=== PATIENT | female | born 1950 | race Caucasian/White ===

== ENCOUNTER → 2019-09-03 14:48 | Outpatient (CLI) | payer OTHER, SELFPAY ==
--- NOTE | ~2019-09-03 | MM_ITS ---
EXAMINATION: MM screening [place] BI w scar HISTORY: Screening mammogram TECHNIQUE: Craniocaudal and mediolateral oblique 3-D tomosynthesis images were obtained and synthetic 2-D images were generated. CAD analysis was submitted and interpreted. COMPARISON: 03/21/2018 BREAST PARENCHYMAL COMPOSITION: There are scattered areas of fibroglandular density. FINDINGS: There is no evidence of suspicious mass, calcification, or architectural distortion to sugg est malignancy in either breast. There has been no suspicious interval change. IMPRESSION: 1. No mammographic evidence of malignancy. 2. Recommend routine screening mammography in one year. BI-RADS Category 1: Negative Reviewed, dictated and finalized at location A. WELDER
== END ==
PROVIDERS: PCP Family Medicine; Visit Provider Nurse Practitioner Family
DX: Z12.31 Encounter for screening mammogram for malignant neoplasm of breast (principal)
CPT/HCPCS: 77063; 77067

== ENCOUNTER 2020-02-20 17:31 | Emergency (ER) | payer OTHER, SELFPAY ==
--- NOTE | ~2020-02-20 | XR_ITS ---
EXAMINATION: XR hip LT 2V w AP pelvis EXAM DATE: 02/20/2020 18:43 INDICATION: Left hip pain, fracture. Foreshortening. TECHNIQUE: Left hip frontal, crosstable lateral projections for interpretation. Frontal projection pe lvis. Comparison is made to prior examination from 12/11/2018. FINDINGS: There is total right hip arthroplasty. There is acute closed posttraumatic fracture through the left transcervical femoral neck, with superior displacement and impaction. Pelvic ring appears i ntact. IMPRESSION: Acute left transcervical femoral neck fracture. Reviewed, dictated and finalized at location A.
[2020-02-20 17:38] VITALS: BP 150/84; PULSE 88; RESP 19; TEMP 36.8; O2SAT 94
--- NOTE | 2020-02-20 18:08 | ED.GENADULT ---
HPI - General Adult General Chief complaint: Extremity Injury, Lower Stated complaint: fall,l hip pain Time Seen by Provider: 02/20/20 17:45 Source: patient Mode of arrival: EMS History of Present Illness HPI narrative: Patient is a 69 y/o female complaining of left hip pain starting about 1 hour ago after a fall. She states that she was in a garage and tripped over one leg of a table and fell. She denies hitting her her head or losing consciousness. She has no headache, neck pain, back pain, chest pain or abdominal pain. She describes her pain as 10/10 with no radiation. Movement worsens the pain. She was not able to ambulate after the fall. Daughter called EMS which brought her here. Related Data Home Medications Medication Instructions Recorded Confirmed Vitamin D3 06/24/19 amitriptyline 100 mg PO HS 06/24/19 06/24/19 citalopram 20 mg PO DAILY 06/24/19 06/24/19 famotidine 20 mg PO BID 06/24/19 06/24/19 gabapentin 100 mg PO HS 06/24/19 06/24/19 levothyroxine 100 mcg PO DAILY 06/24/19 06/24/19 senna 02/20/20 Allergies Allergy/AdvReac Type Severity Reaction Status Date / Time meperidine Allergy Unknown HAD Verified 02/20/20 17:46 DEMEROL IN ER ON 09/10/03 WITH NO REACTION Penicillins Allergy Unknown Hives / Verified 02/20/20 17:46 Red Face Review of Systems Constitutional: Constitutional: Denies chills, Denies fever(s), Denies headache(s) and Denies weakness Eyes: Eyes: Denies blurry vision ENT: Denies headache(s) and Denies neck pain Cardiovascular: Cardiovascular: Denies chest pain and Denies dyspnea Respiratory: Respiratory: Denies cough and Denies dyspnea Gastrointestinal: Gastrointestinal: Denies abdominal pain, Denies diarrhea, Denies nausea and Denies vomiting Genitourinary: Genitourinary: Denies hematuria and Denies dysuria Musculoskeletal: Musculoskeletal: Reports as per HPI, Denies back pain, Reports arthralgias (left hip pain) and Denies neck pain Neurologic: Denies headache(s) and Denies weakness PENDING SALE TO [facility] Past Medical History Medical History Anemia Anxiety Bronchitis Hip fracture, right HLD (hyperlipidemia) HTN (hypertension) Hypothyroid Kidney stones Multiple sclerosis MVP (mitral valve prolapse) Surgical History Surgical History H/O bilateral cataract extraction H/O section H/O dilation and curettage H/O: hysterectomy History of arthroplasty of right hip Social History Social History Smoking status: Never smoker Alcohol intake: never Gender identity (if verbalized by the patient): Female Exam Const: General: no acute distress and well developed Orientation/consciousness: oriented to person, oriented to place, oriented to time and patient oriented x3 HENMT: Head: normocephalic Ears: external ears normal General nose exam: Normal external nose present Eyes: General: appearance normal, both eyes and all related structures Conjunctivae: conjunctivae normal Neck: Neck: normal visual inspection and full ROM Chest: Chest palpation & inspection: normal inspection of the chest and no tenderness Resp: Effort & Inspection: normal respiratory effort Auscultation: clear to auscultation bilaterally Cardio: Rate: regular rate Rhythm: regular rhythm GI: GI Palp: No abdominal tenderness and Yes Soft to palpation Skin: General skin exam: normal color and turgor normal Neuro: General: oriented to person, oriented to place, oriented to time and patient oriented x3 Cognition (Neuro): normal cognition Extrem: General: normal to inspection, full ROM and no pedal edema Left lower extremity: hip/thigh Details: tenderness Psych: Appearance: grossly normal Mental Status: mental status grossly normal Affect: normal affect Course Reevaluation(s) Reevaluation #1: Informed patient abo
[2020-02-20 18:16] VITALS: BP 132/95; PULSE 87; RESP 19; O2SAT 94
--- NOTE | 2020-02-20 18:59 | ECG_ITS ---
Measurements Intervals [place] Rate: 80 P: 55 PA: 168 QRS: -7 QRSD: 125 T: 11 QT: 401 QTc: 465 Interpretive Statements SINUS RHYTHM POSSIBLE LEFT ATRIAL ENLARGEMENT RIGHT BUNDLE BRANCH BLOCK BASELINE ARTIFACT- I, II, III, AVR, AVL, AVF BORDERLINE ECG Electronically Signed On 02-20-2020 21:25:34 CDT by Alejo Chance D.O.
[2020-02-20] MEDS: MORPHINE SULFATE 4 MG/ML INJ IV PUSH ×2 (19:21→21:22)
[2020-02-20 19:22] VITALS: BP 143/83; PULSE 85; RESP 16; O2SAT 100
--- NOTE | 2020-02-20 19:40 | PC.NURSE ---
[facility] has accepted to take pt to [place] [facility] ETA [phone]
--- NOTE | 2020-02-20 19:47 | PC.NURSE ---
Called [facility] to transport to [facility] @ 0722
[2020-02-20 21:22] VITALS: BP 118/89; PULSE 90; RESP 21; O2SAT 100
--- NOTE | 2020-02-20 22:00 | PC.NURSE ---
[facility] ETA updated to [id number]
[2020-02-20 22:38] VITALS: BP 150/80; PULSE 90; RESP 20; O2SAT 100
[2020-02-20 23:19] VITALS: BP 143/91; PULSE 96; RESP 16; O2SAT 100
--- NOTE | 2020-02-20 23:40 | PC.NURSE ---
Spoke with pt and her daughter about delay in transfer. Pt is eddieley frustrated she has to wait for EMS transport. I explained to the patient reason of delay with EMS. Pt c/o pain, Dr. Riley notified, he stated he will order pain med.
[2020-02-21] MEDS: MORPHINE SULFATE 4 MG/ML INJ IV PUSH ×2 (00:03→05:08)
[2020-02-21 00:21] VITALS: BP 101/65; PULSE 97; RESP 19; O2SAT 100
[2020-02-21 01:09] VITALS: BP 154/85; PULSE 96; RESP 14; O2SAT 95
--- NOTE | 2020-02-21 02:09 | PC.NURSE ---
[facility] ETA updated to [id number]
[2020-02-21 02:11] VITALS: BP 142/82; PULSE 96; RESP 18; O2SAT 100
--- NOTE | 2020-02-21 04:08 | PC.NURSE ---
[facility] ETA updated to [phone]
--- NOTE | 2020-02-21 04:10 | PC.NURSE ---
[facility] ETA updated to [id number]
[2020-02-21 05:00] VITALS: BP 133/66; PULSE 92; RESP 13; O2SAT 95
== END 2020-02-21 05:10 | disposition short-term general hospital (02) ==
PROVIDERS: Emergency Provider Emergency Medicine; PCP Family Medicine
DX: S72.032A Displaced midcervical fracture of left femur, initial encounter for closed fracture (principal); F41.9 Anxiety disorder, unspecified; E78.5 Hyperlipidemia, unspecified; I10 Essential (primary) hypertension; E03.9 Hypothyroidism, unspecified; Z87.442 Personal history of urinary calculi; G35 Multiple sclerosis; I34.1 Nonrheumatic mitral (valve) prolapse; Z98.42 Cataract extraction status, left eye; I45.10 Unspecified right bundle-branch block; R94.31 Abnormal electrocardiogram [ECG] [EKG]; Z98.41 Cataract extraction status, right eye; W18.09XA Striking against other object with subsequent fall, initial encounter
CPT/HCPCS: 73502; 93005; 96374; 96375; 96376; 99285; J2270; J3010

== ENCOUNTER 2020-09-28 12:39 | Outpatient (NON) | payer MEDICARE, SELFPAY ==
[2020-09-28 13:15] LABS: Add Urine Microscopic? YES; Appearance Urine Clear (Clear); Bacteria Urine Trace /hpf; Bilirubin Urine Negative (Negative); Blood Urine Negative (Negative); Color Urine Yellow (Yellow); Glucose Urine UA Negative (Negative); Ketones Urine Negative (Negative); Leukocyte Esterase Ur 2+ LEU/UL (Negative); Mucus Urine Rare /lpf; Nitrate Urine Negative (Negative); Protein Urine Negative (Negative); Specific Grav Ur 1.013 (1.001-1.035); Squamous Epithelial Cell Urine Few /hpf (Few); Urobilinogen Urine Negative mg/dL (<2.0); WBC Urine 31-50 /hpf
== END 2020-09-28 12:40 ==
PROVIDERS: PCP Family Medicine; Visit Provider Nurse Practitioner Family
DX: R39.9 Unspecified symptoms and signs involving the genitourinary system (principal); N39.0 Urinary tract infection, site not specified
CPT/HCPCS: 81001; 87086; 87088

== ENCOUNTER 2020-09-29 12:19 | Emergency (ER) | payer MEDICARE, SELFPAY ==
[2020-09-29] VITALS (11 sets, daily range): BP systolic 140–163; BP diastolic 58–87; PULSE 67–72; RESP 12–21; TEMP 36.5; O2SAT 97–100
--- NOTE | ~2020-09-29 | XR_ITS ---
EXAMINATION: XR chest 1V portable DATE: 09/29/2020 13:15 INDICATION: Weakness. TECHNIQUE: A single frontal view of the chest was obtained. COMPARISON: Chest single view 01/23/2019 FINDINGS: There is mild atelectasis in the lower lung zones. No pleural effusion or pneumothorax. The heart size is normal. IMPRESSION: 1. Mild atelectasis in the lower lung zones. Reviewed, dictated and finalized at location A.
--- NOTE | ~2020-09-29 | CT_ITS ---
EXAMINATION: CT brain wo con EXAM DATE: 09/29/2020 13:12 INDICATION: Fall, weakness. Confusion. Symptoms 5 days. TECHNIQUE: Spiral CT of the head was performed without contrast. Axial, coronal and sagittal images were reviewed. The dose-length product (DLP) for this examination was 605.33 mGy-cm. The exposure w as tailored according to patient size, and iterative reconstruction (ASIR) was used as additional dos e reduction technique. Comparison is made to prior examination from 04/19/2018. FINDINGS: There is no acute intraparenchymal hemorrhage. No evidence of intraparenchymal brain mass lesion. No evidence of acute infarction. Please note that initial head CT has limited sensitivity f or small or acute infarctions. There is periventricular and subcortical hypodensity, nonspecific but probably related to small vessel ischemic disease. There is mild prominence of the sulci and ventr icles related to cerebral atrophy. There is intracranial carotid arteriosclerosis. There are no ex tra-axial collections. There is no mass effect or midline shift. The orbits are unremarkable. Soft tissue is unremarkable. The visualized sinuses and mastoid air cells are well aerated. IMPRESSION: 1. No acute intracranial findings. 2. Chronic age related findings. Reviewed, dictated and finalized at location A.
--- NOTE | 2020-09-29 12:40 | ECG_ITS ---
Measurements Intervals [place] Rate: 71 P: 43 VT: 160 QRS: -17 QRSD: 126 T: 11 QT: 415 QTc: 453 Interpretive Statements SINUS RHYTHM LEFT ATRIAL ENLARGEMENT RIGHT BUNDLE BRANCH BLOCK BASELINE ARTIFACT- I, II, III, AVR, AVL, AVF, V1-V2 ABNORMAL ECG Electronically Signed On 09-29-2020 15:25:09 CDT by Alejo Chance D.O.
--- NOTE | 2020-09-29 12:57 | ED.GENADULT ---
HPI - General Adult General Chief complaint: Neuro Symptoms/Deficit Stated complaint: payam symptoms, onset 1 week ago Time Seen by Provider: 09/29/20 12:26 Source: patient Mode of arrival: ambulatory Limitations: no limitations History of Present Illness HPI narrative: This is a 69 year old female with history multiple sclerosis, hypothyroid who presents for evaluation of an elevated blood pressure. During physical therapy today , patient was noted to have an elevated blood pressure so it was recommended that she get evaluated. She is unsure of her blood pressure reading. Patient and daughter states she has been having weakness since her left hip fracture 6 months ago. Her daughter states she called her primary care physician in July because patient appeared to be confused and weak. Her primary care physician arranged for her to receive PT/OT at home. Patient has continued to be weak even with physical therapy. Her daughter reports patient has frequent falls over the past 2 months. yesterday patient fell onto her buttocks trying to get up from bed. She states patient has been unable to walk over the past 2 days. She denies fever, chills, nausea, vomiting, diarrhea, chest pain or cough. Related Data Home Medications Medication Instructions Recorded Confirmed Vitamin D3 06/24/19 amitriptyline 100 mg PO HS 06/24/19 06/24/19 citalopram 40 mg PO DAILY 06/24/19 06/24/19 famotidine 20 mg PO BID 06/24/19 06/24/19 gabapentin 100 mg PO HS 06/24/19 06/24/19 levothyroxine 88 mcg PO DAILY 06/24/19 06/24/19 senna 02/20/20 cholecalciferol (vitamin D3) 125 mcg PO DAILY 09/29/20 [Vitamin D3] ergocalciferol (vitamin D2) 1,250 mcg PO WEEKLY 09/29/20 09/29/20 [Vitamin D2] Allergies Allergy/AdvReac Type Severity Reaction Status Date / Time meperidine Allergy Unknown HAD Verified 09/29/20 12:32 DEMEROL IN ER ON 09/10/03 WITH NO REACTION Penicillins Allergy Unknown Hives / Verified 09/29/20 12:32 Red Face Review of Systems Review of Systems: All systems reviewed & are unremarkable except as noted in HPI and below Constitutional: Constitutional: Denies chills and Denies fever(s) Eyes: Eyes: Denies change in vision Cardiovascular: Cardiovascular: Denies chest pain Respiratory: Respiratory: Denies cough and Denies dyspnea Gastrointestinal: Gastrointestinal: Denies abdominal pain, Denies diarrhea, Denies nausea and Denies vomiting Neurologic: Denies headache(s) and Reports weakness PMFSH Past Medical History Medical History (Updated 09/29/20 @ 15:22 by Morena Light MD) Anemia Anxiety Bronchitis Hip fracture, right HLD (hyperlipidemia) HTN (hypertension) Hypothyroid Kidney stones Multiple sclerosis MVP (mitral valve prolapse) Surgical History Surgical History H/O bilateral cataract extraction H/O section H/O dilation and curettage H/O: hysterectomy History of arthroplasty of right hip Social History Social History Smoking status: Never smoker Alcohol intake: never Gender identity (if verbalized by the patient): Female Exam Const: General: no acute distress and alert Orientation/consciousness: patient oriented x3 Eyes: Pupils: Equal, round and reactive pupils present EOM: EOMs intact bilaterally Chest: Chest palpation & inspection: normal inspection of the chest Resp: Effort & Inspection: normal respiratory effort and no retractions Auscultation: clear to auscultation bilaterally Cardio: Rate: regular rate Rhythm: regular rhythm Heart sounds: no murmurs GI: GI Palp: Yes Soft to palpation, No Tenderness to palpation present (GI) and No Guarding due to palpation present (GI) Auscultation: normal bowel sounds Skin: General skin exam: normal color Rashes: no rashes Neuro: General: patient oriented x3 and moves all extremiti
[2020-09-29 13:08] LABS: Basophils Percent Auto 0.6 % (0.2-1.2); Eosinophils Absolute Auto 0.3 K/mm3 (0-0.3); Eosinophils Percent Auto 3.6 % (0-4.4); Hematocrit 43.1 % (37.0-47.0); Hemoglobin 13.6 g/dL (12.0-15.0); Immature Granulocyte Absolute 0.04 K/mm3 (0.00-0.031); Immature Granulocyte Percent A 0.6 % (0-0.5); Lymphocytes Percent Auto 21.3 % (18.3-44.2); Mean Corpuscular HGB Conc 31.6 g/dl (32-36); Mean Corpuscular Hemoglobin 30.2 pg (26-34); Mean Corpuscular Volume 95.8 fl (80-100); Mean Platelet Volume 11.6 fl (7.4-10.4); Monocytes Absolute Auto 0.6 K/mm3 (0.1-0.6); Neutrophils Absolute Auto 4.6 K/mm3 (1.3-6.7); Neutrophils Percent Auto 65.9 % (45.5-73.1); Platelet Count Result 206 k/mm3 (150-375); Red Cell Distribution Width 14.1 % (11.5-14.5)
[2020-09-29 13:23] LABS: Alanine Aminotransferase 23 U/L (4-35); Albumin Level 4.1 g/dL (3.5-5.1); Alkaline Phosphatase 85 U/L (38-126); Anion Gap 8 mmol/L (8-16); Aspartate Amino Transferase 37 U/L (14-36); Bilirubin,Total 0.5 mg/dL (0.2-1.3); Blood Urea Nitrogen 22 mg/dL (7-17); Calcium 9.3 mg/dL (8.4-10.2); Carbon Dioxide 25 mmol/L (22-30); Chloride 105 mmol/L (98-107); Estimated CRCL calculation 34 ml/min; Estimated Glomerular Filt Rate 37; Glucose 79 mg/dL (65-105); Potassium 4.7 mmol/L (3.4-5.0); Sodium 138 mmol/L (137-145)
[2020-09-29] MEDS: SODIUM CHLORIDE 0.9% IV 1,000 ML 999 ML IV CONT (13:44)
[2020-09-29 13:53] LABS: INR 0.9; Prothrombin Time 12.7 Seconds (11.1-14.7)
[2020-09-29 13:54] LABS: Partial Thromboplastin Time 26.6 SECONDS (22.3-36.8)
[2020-09-29 14:05] LABS: Add Urine Microscopic? NO; Appearance Urine Clear (Clear); Bacteria Urine Trace /hpf; Bilirubin Urine Negative (Negative); Blood Urine Negative (Negative); Color Urine Yellow (Yellow); Glucose Urine UA Negative (Negative); Ketones Urine Negative (Negative); Leukocyte Esterase Ur Negative LEU/UL (Negative); Mucus Urine Rare /lpf; Nitrate Urine Negative (Negative); Protein Urine Negative (Negative); RBC Urine 0-2 /hpf (0-2); Specific Grav Ur 1.014 (1.001-1.035); Urobilinogen Urine Negative mg/dL (<2.0); WBC Urine 0-3 /hpf
== END 2020-09-29 15:30 | disposition home or self-care (01) ==
PROVIDERS: Emergency Provider General Practice; PCP Family Medicine
DX: R53.1 Weakness (principal); N28.9 Disorder of kidney and ureter, unspecified; G35 Multiple sclerosis; I10 Essential (primary) hypertension; E03.9 Hypothyroidism, unspecified; F41.9 Anxiety disorder, unspecified; E78.5 Hyperlipidemia, unspecified; Z87.442 Personal history of urinary calculi; I34.1 Nonrheumatic mitral (valve) prolapse; Z98.42 Cataract extraction status, left eye; Z98.41 Cataract extraction status, right eye; Z96.641 Presence of right artificial hip joint; R91.8 Other nonspecific abnormal finding of lung field; I45.10 Unspecified right bundle-branch block; R94.31 Abnormal electrocardiogram [ECG] [EKG]
CPT/HCPCS: 36415; 51701; 70450; 71045; 80053; 81003; 85025; 85610; 85730; 93005; 96360; 96361; 99284; J7030

== ENCOUNTER 2020-12-05 21:12 | Emergency (ER) | payer MEDICARE, SELFPAY ==
--- NOTE | ~2020-12-05 | CT_ITS ---
EXAMINATION: CT brain wo con DATE: 12/05/2020 21:45 INDICATION: Head injury post fall TECHNIQUE: Computed tomography (CT) of the head was performed without intravenous contrast. Sagittal and coronal reconstructions were performed. The mA was adjusted according to patient size. Iterative reconstruction technique was employed. The dose-length product was 605.33 mGy-cm. COMPARISON: head CT dated 09/29/2020 FINDINGS: No fracture. Small subdural hematoma along the right side of the anterior falx which measures up to 3 mm in maximal thickness. No acute acute infarction or abnormal extra axial fluid collection. There i s mild scattered white matter hypoattenuation consistent with chronic small vessel ischemic disease. Ventricles are normal and symmetric. No mass/mass effect. Mild mucosal thickening in the right maxil darion sinus. The orbits and mastoid air cells are normal. IMPRESSION: 1. Small subdural hematoma along the anterior falx. Dr. Rey Saenz discussed these findings with Dr. Richmond at 9:35 AM on 12/05/2020. Reviewed, dictated and finalized at location A. IMPRESSION: 1. Small subdural hematoma along the anterior falx. Dr. Rey Saenz discusse d these findings with Dr. Richmond at 9:35 AM on 12/05/2020.
--- NOTE | ~2020-12-05 | XR_ITS ---
EXAMINATION: XR tibia fibula LT 2V DATE: 12/05/2020 21:55 INDICATION: Left lower leg pain post fall TECHNIQUE: Anteroposterior and lateral views of the left tibia and fibula were obtained. COMPARISON: None. FINDINGS: Alignment is normal. No fracture. Small Achilles calcaneal spur. Joint spaces are normal. No left kn ee joint effusion. Soft tissues are unremarkable. IMPRESSION: 1. No acute osseous abnormality. Reviewed, dictated and finalized at location A.
--- NOTE | ~2020-12-05 | CT_ITS ---
EXAMINATION: CT cervical spine wo con DATE: 12/05/2020 21:46 INDICATION: Fall with head injury TECHNIQUE: Computed tomography (CT) of the cervical spine was performed without intravenous contrast. Automated exposure control and iterative reconstruction technique were employed. The dose-length pro duct was 318.91 mGy-cm. COMPARISON: Cervical spine MRI dated 04/23/2018 FINDINGS: Alignment is normal. Vertebral body heights are normal. No fracture. Mild disc height loss at C4-C5 a nd C5-C6. There are disc bulges with mild central canal stenosis at C3-C4 through C5-C6. Multilevel m ild uncovertebral and mild severe cervical and upper thoracic facet osteoarthritis. This contributes to scattered mild neural foraminal stenosis at a few levels in the cervical and upper thoracic spine. Cervical soft tissues are unremarkable. Visualized airway and apices of lungs are clear. IMPRESSION: 1. Mild cervical spondylosis. No acute osseous abnormality. Reviewed, dictated and finalized at location A.
--- NOTE | ~2020-12-05 | XR_ITS ---
EXAMINATION: XR hip LT 2V w AP pelvis DATE: 12/05/2020 21:55 INDICATION: Left hip pain post fall TECHNIQUE: Anteroposterior view of the pelvis and anteroposterior and frog-leg lateral views of the l eft hip were obtained. COMPARISON: 02/20/2020 FINDINGS: Right total hip arthroplasty with subtrochanteric cerclage wire and bipolar type left hip hemiarthrop lasty, both in near-anatomic alignment . No fracture. No periprosthetic lucency to suggest loosening. Bilateral sacroiliac joint spaces are relatively preserved. Tiny phleboliths in the pelvis. IMPRESSION: 1. No acute osseous abnormality. Reviewed, dictated and finalized at location A.
[2020-12-05 21:19] VITALS: BP 128/79; PULSE 74; RESP 16; TEMP 36.7; O2SAT 100
[2020-12-05 22:46] VITALS: BP 144/80; PULSE 77; RESP 16; O2SAT 100
--- NOTE | 2020-12-05 22:46 | ED.FALL ---
HPI - Fall General Chief Complaint: Fall Stated Complaint: fall, hip and neck pain Time Seen by Provider: 12/05/20 21:19 History of Present Illness HPI Narrative: Patient is a 70-year-old female who presents ER after a slip and fall. Her dog got loose outside and she was going around side of the house where the ground starts to slip downwards. She slipped and her legs went out in front of her and she fell backwards striking her head. Denies losing consciousness. Due to immobility issues patient was unable to get herself up from the ground. She reports pain to her left hip as well as her left carlton. Denies change in vision or hearing. She has pain in her head over where she struck her head but no global headache. She is not on any blood thinners but does take a baby aspirin. Related Data Home Medications Medication Instructions Recorded Confirmed Vitamin D3 06/24/19 amitriptyline 100 mg PO HS 06/24/19 06/24/19 citalopram 40 mg PO DAILY 06/24/19 06/24/19 famotidine 20 mg PO BID 06/24/19 06/24/19 gabapentin 100 mg PO HS 06/24/19 06/24/19 levothyroxine 88 mcg PO DAILY 06/24/19 06/24/19 senna 02/20/20 cholecalciferol (vitamin D3) 125 mcg PO DAILY 09/29/20 [Vitamin D3] ergocalciferol (vitamin D2) 1,250 mcg PO WEEKLY 09/29/20 09/29/20 [Vitamin D2] Allergies Allergy/AdvReac Type Severity Reaction Status Date / Time meperidine Allergy Unknown HAD Verified 09/29/20 12:32 DEMEROL IN ER ON 09/10/03 WITH NO REACTION Penicillins Allergy Unknown Hives / Verified 09/29/20 12:32 Red Face Review of Systems Review of Systems: All systems reviewed & are unremarkable except as noted in HPI and below Eyes: Eyes: Denies change in vision and Denies photophobia Cardiovascular: Cardiovascular: Denies chest pain and Denies radiating jaw, neck or arm pain Gastrointestinal: Gastrointestinal: Denies nausea and Denies vomiting Musculoskeletal: Musculoskeletal: Denies back pain, Reports arthralgias, Denies joint swelling and Denies muscle cramps PMFSH Past Medical History Medical History (Updated 12/05/20 @ 22:58 by Paxton Richmond MD) Anemia Anxiety Bronchitis Hip fracture, right HLD (hyperlipidemia) HTN (hypertension) Hypothyroid Kidney stones Multiple sclerosis MVP (mitral valve prolapse) Surgical History Surgical History H/O bilateral cataract extraction H/O section H/O dilation and curettage H/O: hysterectomy History of arthroplasty of right hip Social History Social History Smoking status: Never smoker Alcohol intake: never Gender identity (if verbalized by the patient): Female Exam Narrative: Exam Narrative: GENERAL: Well-appearing, well-nourished, and in no acute distress. HEAD: Normocephalic, atraumatic. EYES: PERRL and EOMI. ENT: Mucous membranes moist. NECK: C-Spine immobilized w/o midline tenderness. CHEST: Clear to auscultation. No respiratory distress. HEART: Regular rate and rhythm. Normal peripheral pulses. ABDOMEN: Soft, nontender, nondistended. BACK: No midline tenderness of the thoracic/lumbar spine. No abrasions/burising/paraspinal pain. EXTREMITIES: Normal range of motion. 1+ edema. SKIN: Warm, dry, no rash. NEURO: Clear speech, normal strength in BLE/BUE, normal sensation in extremities. Alert and oriented x3. Course Reevaluation(s) Reevaluation #1: Accepted to [facility] ER by Dr. Lechuga. Date: 12/05/20 Time: 22:56 Vital Signs Vital signs: Vital Signs Temperature 98.1 F 12/05/20 21:19 Pulse Rate 74 12/05/20 21:19 Respiratory Rate 16 12/05/20 21:19 Blood Pressure 128/79 12/05/20 21:19 Pulse Oximetry 100 12/05/20 21:19 Temperature 98.1 F 12/05/20 21:19 Pulse Rate 77 12/05/20 22:46 Respiratory Rate 16 12/05/20 22:46 Blood Pressure 144/80 H 12/05/20 22:46 Pulse Oximetry 100 12/05/20 22:46 MDM
--- NOTE | 2020-12-05 23:38 | PC.NURSE ---
called [facility] for transport. ETA 15 minutes.
== END 2020-12-06 00:01 | disposition short-term general hospital (02) ==
PROVIDERS: Emergency Provider Emergency Medicine; PCP Family Medicine
DX: S06.5X0A Traumatic subdural hemorrhage without loss of consciousness, initial encounter (principal); G35 Multiple sclerosis; F41.9 Anxiety disorder, unspecified; E78.5 Hyperlipidemia, unspecified; I10 Essential (primary) hypertension; E03.9 Hypothyroidism, unspecified; Z86.2 Personal history of diseases of the blood and blood-forming organs and certain disorders involving the immune mechanism; Z87.442 Personal history of urinary calculi; W01.0XXA Fall on same level from slipping, tripping and stumbling without subsequent striking against object, initial encounter; I34.1 Nonrheumatic mitral (valve) prolapse; Z98.42 Cataract extraction status, left eye; Z98.41 Cataract extraction status, right eye; Z96.641 Presence of right artificial hip joint
CPT/HCPCS: 70450; 72125; 73502; 73590; 99284; 99285

== ENCOUNTER → 2021-02-19 13:50 | Outpatient (CLI) | payer MEDICARE, SELFPAY ==
--- NOTE | ~2021-02-19 | MM_ITS ---
EXAMINATION: MM screening [facility] BI w scar HISTORY: Screening TECHNIQUE: Craniocaudal and mediolateral oblique 3-D tomosynthesis images were obtained and synthetic 2-D images were generated. CAD analysis was submitted and interpreted. COMPARISON: Comparison to multiple prior studies sequentially, with oldest reviewed study dated 11/2017. BREAST PARENCHYMAL COMPOSITION: There are scattered areas of fibroglandular density. FINDINGS: There is no evidence of suspicious mass, calcification, or architectural distortion to sugg est malignancy in either breast. There has been no suspicious interval change. IMPRESSION: 1. No mammographic evidence of malignancy. 2. Recommend routine screening mammography in one year. BI-RADS Category 1: Negative Reviewed, dictated and finalized at location A.
== END ==
PROVIDERS: PCP Nurse Practitioner Family; Visit Provider Nurse Practitioner Family
DX: Z12.31 Encounter for screening mammogram for malignant neoplasm of breast (principal)
CPT/HCPCS: 77063; 77067

== ENCOUNTER → 2021-05-13 12:31 | Outpatient (CLI) | payer MEDICARE, SELFPAY ==
--- NOTE | ~2021-05-13 | XR_ITS ---
EXAMINATION: XR hip LT min 2V DATE: 05/13/2021 12:51 INDICATION: Left hip pain. TECHNIQUE: 2 views of left hip were obtained. COMPARISON: Left hip radiographs 12/05/2020 FINDINGS: There is a bipolar left hip hemiarthroplasty in near-anatomic alignment. No fracture. No pe riprosthetic lucency to suggest loosening or infection. Left hip joint space is normal. IMPRESSION: 1. Bipolar left hip hemiarthroplasty in near-anatomic alignment. Reviewed, dictated and finalized at location A.
== END ==
PROVIDERS: PCP Nurse Practitioner Family; Visit Provider Nurse Practitioner Family
DX: M25.559 Pain in unspecified hip (principal)
CPT/HCPCS: 73502

== ENCOUNTER 2021-11-08 18:38 | Emergency (ER) | payer MEDICARE, SELFPAY ==
--- NOTE | ~2021-11-08 | XR_ITS ---
EXAMINATION: XR foot LT min 3V DATE: 11/08/2021 21:01 INDICATION: Left foot swelling and redness TECHNIQUE: Dorsoplantar, lateral, and 2 oblique views of the left foot were obtained. COMPARISON: None. FINDINGS: There is dorsal soft tissue swelling of the foot overlying the metatarsals. No fracture is identified. Bone alignment is normal. There is mild osteoarthritis of multiple interphalangeal joints . IMPRESSION: 1. Dorsal soft tissue swelling of the foot overlying the metatarsals without acute osseous abnormalit y. Reviewed, dictated and finalized at location F. IMPRESSION: 1. Dorsal soft tissue swelling of the foot overlying the metatarsals without ac era osseous abnormality.
--- NOTE | 2021-11-08 19:21 | PC.NURSE ---
Addendum entered by Layne Castellano RN 11/08/21 19:21: Pt had no answer for triage Original Note: This nurse called the pt x1 for triage
[2021-11-08 19:53] VITALS: BP 148/88; PULSE 78; RESP 16; TEMP 36.7; O2SAT 99
--- NOTE | 2021-11-08 20:43 | ED.LOWEXIN ---
HPI - Extremity Injury (Lower) General Chief Complaint: Extremity Injury, Lower Stated Complaint: toe pain Time Seen by Provider: 11/08/21 20:37 Source: patient Mode of arrival: ambulatory Limitations: no limitations History of Present Illness HPI Narrative: Patient is a 72-year-old female complaining of left foot pain, swelling started 3 days ago. Patient states that she might of stubbed her toe but does not remember. Patient denies any calf pain or swelling. Patient denies any fever or chills. Related Data Home Medications Medication Instructions Recorded Confirmed Vitamin D3 06/24/19 amitriptyline 100 mg PO HS 06/24/19 06/24/19 citalopram 40 mg PO DAILY 06/24/19 06/24/19 famotidine 20 mg PO BID 06/24/19 06/24/19 gabapentin 100 mg PO HS 06/24/19 06/24/19 levothyroxine 88 mcg PO DAILY 06/24/19 06/24/19 senna 02/20/20 cholecalciferol (vitamin D3) 125 mcg PO DAILY 09/29/20 [Vitamin D3] ergocalciferol (vitamin D2) 1,250 mcg PO WEEKLY 09/29/20 09/29/20 [Vitamin D2] Allergies Allergy/AdvReac Type Severity Reaction Status Date / Time meperidine Allergy Unknown HAD Verified 11/08/21 20:38 DEMEROL IN ER ON 09/10/03 WITH NO REACTION Penicillins Allergy Unknown Hives / Verified 11/08/21 20:38 Red Face Review of Systems Review of Systems: Per HPI All systems reviewed & are unremarkable except as noted in HPI and below PMFSH Past Medical History Medical History (Updated 11/08/21 @ 21:23 by Guille Duong MD) Anemia Anxiety Bronchitis Hip fracture, right HLD (hyperlipidemia) HTN (hypertension) Hypothyroid Kidney stones Multiple sclerosis MVP (mitral valve prolapse) Surgical History Surgical History H/O bilateral cataract extraction H/O section H/O dilation and curettage H/O: hysterectomy History of arthroplasty of right hip Social History Social History Smoking status: Never smoker Alcohol intake: never Gender identity (if verbalized by the patient): Female Exam Const: General: no acute distress and alert Orientation/consciousness: patient oriented x3 HENMT: Head: normal to inspection Eyes: Conjunctivae: conjunctivae normal Neck: Neck: normal visual inspection Resp: Effort & Inspection: normal respiratory effort Neuro: General: patient oriented x3 and moves all extremities Extrem: Other: Slightly erythematous, swollen left foot. Full range of motion. Neurovascular is intact. Course Vital Signs Vital signs: Vital Signs Temperature 36.7 C 11/08/21 19:53 Pulse Rate 78 11/08/21 19:53 Respiratory Rate 16 11/08/21 19:53 Blood Pressure 148/88 H 11/08/21 19:53 Pulse Oximetry 99 11/08/21 19:53 Temperature 36.7 C 11/08/21 19:53 Pulse Rate 78 11/08/21 19:53 Respiratory Rate 16 11/08/21 19:53 Blood Pressure 148/88 H 11/08/21 19:53 Pulse Oximetry 99 11/08/21 19:53 Discharge Plan Discharge Clinical Impression: Cellulitis of foot Patient Disposition: Home, Self-Care Condition: Stable Instructions: Antibiotic Form, Cellulitis (ED) Prescriptions: New doxycycline monohydrate 100 mg capsule 100 mg PO BID 7 Days Qty: 14 RF: 0 No Action amitriptyline 50 mg Tablet 100 mg PO HS RF: 0 levothyroxine 100 mcg Tablet 88 mcg PO DAILY RF: 0 citalopram 20 mg Tablet 40 mg PO DAILY RF: 0 famotidine 20 mg Tablet 20 mg PO BID RF: 0 gabapentin 100 mg Capsule 100 mg PO HS RF: 0 Vitamin D3 RF: 0 senna RF: 0 ergocalciferol (vitamin D2) [Vitamin D2] 1,250 mcg (50,000 unit) Capsule 1,250 mcg PO WEEKLY RF: 0 cholecalciferol (vitamin D3) [Vitamin D3] 125 mcg (5,000 unit) Tablet 125 mcg PO DAILY RF: 0 Follow-up/Referrals: Tesfaye,YESI Hammonds-JAYNE [Primary Care Provider] - 11/09/21 Time of Disposition: 21:24
[2021-11-08] MEDS: DOXYCYCLINE HYCLATE 100 MG TABLET (21:41)
--- NOTE | 2021-11-08 21:42 | PC.NURSE ---
vorb for doxycycline 100 [address]1 [address] Dr Duong
== END 2021-11-08 21:48 | disposition home or self-care (01) ==
PROVIDERS: Emergency Provider Emergency Medicine; PCP Nurse Practitioner Family
DX: L03.116 Cellulitis of left lower limb (principal); E78.5 Hyperlipidemia, unspecified; I10 Essential (primary) hypertension; E03.9 Hypothyroidism, unspecified; G35 Multiple sclerosis; I34.1 Nonrheumatic mitral (valve) prolapse; Z87.442 Personal history of urinary calculi; F41.9 Anxiety disorder, unspecified; Z98.42 Cataract extraction status, left eye; Z98.41 Cataract extraction status, right eye; Z96.641 Presence of right artificial hip joint
CPT/HCPCS: 73630; 99283; A9270

== ENCOUNTER 2022-02-21 18:09 | Emergency (ER) | payer MEDICARE, SELFPAY ==
--- NOTE | ~2022-02-21 | XR_ITS ---
EXAM: XR ribs BI 3V w CXR 2V DATE: 02/21/2022 19:03 HISTORY: fallen 2 times in 8 days . COMPARISON: None available. FINDINGS: Decreased mineralization. Senescent changes in the lungs. Unremarkable cardiomediastinal s ilhouette. No fracture or dislocation. No lytic or blastic lesion. Joint spaces are maintained. No er osion or periosteal change. Soft tissues within normal limits. IMPRESSION: No acute osseous finding in the bilateral ribs or chest. Reviewed, dictated and finalized at location K.
--- NOTE | 2022-02-21 18:24 | ED.FEMALEGU ---
HPI - Female Genitourinary General Chief complaint: Urogenital-Female Stated complaint: kindey infection,rib pain Time Seen by Provider: 02/21/22 18:35 Source: patient and RN notes reviewed Mode of arrival: ambulatory Limitations: no limitations History of Present Illness HPI Narrative: 71 y/o female with history of MS presented for c/o bilateral lower back pain and right rib pain. Pt has had 2 falls in 8 days. States she tripped while walking, landed on carpet floor on the right side of her body and fell in the bathroom. Pain is zero at rest, worse with movement. Denies hitting her head or loss of consciousness. Denies numbness, tingling or increased weakness of the lower extremities, denies loss of bowel/bladder function or saddle paresthesia. Using cane. History of brain aneurysm since a fall 03/2021. Also reports urine is 'red' and she is more confused for the last couple of weeks. Cannot recall LBM. Daughter states she had a recent URI, testing negative for covid last week. Reports she drinks minimal water, mostly pepsi. Denies cough, shortness of breath, abdominal pain, n/v/d, fever, chills. Related Data Home Medications Medication Instructions Recorded Confirmed Vitamin D3 25 mcg PO DAILY 06/24/19 amitriptyline 50 mg tablet 100 mg PO HS 06/24/19 02/21/22 famotidine 20 mg tablet 20 mg PO BID 06/24/19 02/21/22 levothyroxine 100 mcg tablet 88 mcg PO DAILY 06/24/19 02/21/22 senna 100 mg PO DAILY 02/20/20 ergocalciferol (vitamin D2) 1,250 1,250 mcg PO WEEKLY 09/29/20 02/21/22 mcg (50,000 unit) capsule (Vitamin D2) alendronate 70 mg-cholecalciferol 1 tablet PO DAILY 02/21/22 02/21/22 (vitamin D3) 2,800 unit tablet escitalopram oxalate 5 mg tablet 5 mg PO DAILY 02/21/22 02/21/22 paroxetine HCl 10 mg tablet 10 mg PO DAILY 02/21/22 02/21/22 Allergies Allergy/AdvReac Type Severity Reaction Status Date / Time meperidine Allergy Unknown HAD Verified 02/21/22 18:25 DEMEROL IN ER ON 09/10/03 WITH NO REACTION Penicillins Allergy Unknown Hives / Verified 02/21/22 18:25 Red Face Review of Systems Review of Systems: CONSTITUTIONAL: Denies body aches, fever, chills, or sweats. CARDIOVASCULAR: Denies chest pain, palpitations, or edema. RESPIRATORY: Denies cough or dyspnea. GASTROINTESTINAL: Denies abdominal pain, nausea, vomiting, or diarrhea. GENITOURINARY: Denies dysuria, frequency, urgency, hematuria, flank pain SKIN: Denies rash, itching, or wounds. MUSCULOSKELETAL: Denies back pain or myalgia. [facility] Past Medical History Medical History (Updated 02/21/22 @ 19:23 by Radha Olsen, WALTER) Anemia Anxiety Bronchitis Hip fracture, right HLD (hyperlipidemia) HTN (hypertension) Hypothyroid Kidney stones Multiple sclerosis MVP (mitral valve prolapse) Surgical History Surgical History H/O bilateral cataract extraction H/O section H/O dilation and curettage H/O: hysterectomy History of arthroplasty of right hip Social History Social History Smoking status: Never smoker Alcohol intake: never Gender identity (if verbalized by the patient): Female Comments At time of signature, I have reviewed and agree with nursing past medical, surgical, social and family history unless otherwise noted. Please see nursing chart for further information. There is no relevant family history pertinent to the presenting complaint Exam Narrative: GENERAL: Well-appearing no acute distress. EYES: EOMI. PERRLA ENT: Mucous membranes pink and moist. NECK: Normal AROM. No vertebral tenderness. CHEST: No respiratory distress. Clear to auscultation. HEART: Regular rate and rhythm. ABDOMEN: Soft, nontender, nondistended, normal active bowel sounds. No CVA tenderness MUSCULOSKELETAL: Right lower rib tenderness with palpation, no bruising; no vertebral point tenderness.
[2022-02-21 18:27] VITALS: BP 145/87; PULSE 77; RESP 14; TEMP 36.3; O2SAT 100
[2022-02-21 18:32] VITALS: BP 145/87; PULSE 77; RESP 14; TEMP 36.3; O2SAT 100
== END 2022-02-21 19:45 | disposition home or self-care (01) ==
PROVIDERS: Emergency Provider Nurse Practitioner Family; PCP Nurse Practitioner Family
DX: R31.29 Other microscopic hematuria (principal); S20.211A Contusion of right front wall of thorax, initial encounter; W01.0XXA Fall on same level from slipping, tripping and stumbling without subsequent striking against object, initial encounter; E78.5 Hyperlipidemia, unspecified; I10 Essential (primary) hypertension; E03.9 Hypothyroidism, unspecified; G35 Multiple sclerosis; I34.1 Nonrheumatic mitral (valve) prolapse; Z98.42 Cataract extraction status, left eye; Z98.41 Cataract extraction status, right eye; F41.9 Anxiety disorder, unspecified
CPT/HCPCS: 71046; 71110; 81003; 87086; 99213; G0463

== ENCOUNTER 2022-04-29 12:36 | Emergency (ER) | payer MEDICARE, SELFPAY ==
--- NOTE | ~2022-04-29 | CT_ITS ---
EXAMINATION: CT brain wo con DATE: 04/29/2022 13:36 INDICATION: Head injury. TECHNIQUE: Computed tomography (CT) of the head was performed without intravenous contrast. The mA wa s adjusted according to patient size. Iterative reconstruction technique was employed. The dose-lengt h product was 605.33 mGy-cm. COMPARISON: Head CT 12/05/20 FINDINGS: There are scattered areas of low attenuation in the cerebral white matter, which is within normal limits for the patient's age. There is no intracranial hemorrhage, acute infarction, or abnorm al intracranial mass lesion. The ventricles are normal in size. The orbits are normal. There is left anterolateral scalp soft tissue swelling. Vertebral body heights are normal. The mastoid air cells ar e normal. IMPRESSION: 1. Normal aging brain. Reviewed, dictated and finalized at location A. IMPRESSION: 1. Normal aging brain.
[2022-04-29 12:40] VITALS: BP 153/76; PULSE 78; RESP 20; TEMP 36.7; O2SAT 98
--- NOTE | 2022-04-29 13:11 | ED.FALL ---
HPI - Fall General Chief Complaint: Head Injury Stated Complaint: FELL HIT HEAD Time Seen by Provider: 04/29/22 12:38 Source: patient and RN notes reviewed Mode of arrival: ambulatory Limitations: no limitations History of Present Illness HPI Narrative: patient states that she was walking through construction at her home. She lives in a trailer at this point mother billing her new home. Said she tripped over some of the materials there and hit the stove with her left side of her forehead. She has a history of a traumatic hemorrhage in the past also multiple sclerosis. She wanted to be checked out to be sure there is nothing worse going on. complaint: fall Onset (ago): hour(s) (1.5) Fall from: standing Fall witnessed: no Place fall occurred: home Loss of consciousness: none Prolonged down time: no Symptoms prior to fall: none Context: tripped/slipped Location of injury: head Severity: mild Quality: dull and aching Associated symptoms (after fall): denies Related Data Home Medications Medication Instructions Recorded Confirmed Vitamin D3 25 mcg PO DAILY 06/24/19 04/29/22 amitriptyline 50 mg tablet 100 mg PO HS 06/24/19 04/29/22 famotidine 20 mg tablet 20 mg PO BID 06/24/19 04/29/22 levothyroxine 100 mcg tablet 88 mcg PO DAILY 06/24/19 04/29/22 senna 100 mg PO DAILY 02/20/20 04/29/22 ergocalciferol (vitamin D2) 1,250 1,250 mcg PO WEEKLY 09/29/20 04/29/22 mcg (50,000 unit) capsule (Vitamin D2) alendronate 70 mg-cholecalciferol 1 tablet PO DAILY 02/21/22 04/29/22 (vitamin D3) 2,800 unit tablet escitalopram oxalate 5 mg tablet 5 mg PO DAILY 02/21/22 04/29/22 paroxetine HCl 10 mg tablet 10 mg PO DAILY 02/21/22 04/29/22 Allergies Allergy/AdvReac Type Severity Reaction Status Date / Time meperidine Allergy Unknown HAD Verified 02/21/22 18:25 DEMEROL IN ER ON 09/10/03 WITH NO REACTION Penicillins Allergy Unknown Hives / Verified 02/21/22 18:25 Red Face PMFSH Past Medical History Medical History (Updated 10/14/22 @ 13:49 by Antonino Nino MD) Anemia Anxiety Bronchitis Hip fracture, right HLD (hyperlipidemia) HTN (hypertension) Hypothyroid Kidney stones Multiple sclerosis MVP (mitral valve prolapse) Surgical History Surgical History H/O bilateral cataract extraction H/O section H/O dilation and curettage H/O: hysterectomy History of arthroplasty of right hip Social History Social History Smoking status: Never smoker Alcohol intake: never Gender identity (if verbalized by the patient): Female Exam Const: General: healthy appearing, no acute distress and alert Nutritional Appearance: well nourished and thin Orientation/consciousness: patient oriented x3 Limitations: no limitations HENMT: Head: contusion left frontal (forehead) and hematoma left frontal (forehead) Ears: external ears normal and TM's normal bilaterally Face/Nose/Sinus: Normal external nose present Face and sinus: normal facial exam Mouth: Yes moist mucous membranes Eyes: Conjunctivae: conjunctivae normal Pupils: Equal, round and reactive pupils present EOM: EOMs intact bilaterally Neck: Neck: normal visual inspection Resp: Effort & Inspection: normal respiratory effort Auscultation: clear to auscultation bilaterally Cardio: Rate: regular rate Rhythm: regular rhythm GI: GI Palp: Yes Soft to palpation and No Tenderness to palpation present (GI) Auscultation: normal bowel sounds Back/Spine/Pelvis: Cervical Spine: cervical ROM normal Thoracic/Lumbar Spine: thoraco-lumbar ROM normal Skin: General skin exam: normal color Neuro: General: patient oriented x3, moves all extremities, no focal motor deficits and CN's II-XI intact bilaterally Speech: normal speech Gait exam (Neuro): Normal gait present Extrem: General: normal to inspection and no clubbing, cya
--- NOTE | 2022-04-29 13:56 | PC.NURSE ---
pt daughter states pt has been hallucinating. concerned with medications paroxetine. pt has appt with family doctor this week.
[2022-04-29 13:58] VITALS: BP 148/77; PULSE 71; RESP 20; TEMP 36.6; O2SAT 97
== END 2022-04-29 14:05 | disposition home or self-care (01) ==
PROVIDERS: Emergency Provider Emergency Medicine; PCP Nurse Practitioner Family
DX: S00.03XA Contusion of scalp, initial encounter (principal); W22.8XXA Striking against or struck by other objects, initial encounter
CPT/HCPCS: 70450; 99284

== ENCOUNTER 2022-09-19 13:48 | Emergency (ER) | payer MEDICARE, SELFPAY ==
[2022-09-19 13:48] VITALS: BP 149/98; PULSE 88; RESP 16; TEMP 37; O2SAT 96
[2022-09-19 13:50] VITALS: BP 149/98; PULSE 87; RESP 16; TEMP 37; O2SAT 97
--- NOTE | 2022-09-19 14:08 | ED.GENADULT ---
HPI - General Adult General Chief complaint: Nausea/Vomiting/Diarrhea Stated complaint: vomiting Time Seen by Provider: 09/19/22 13:51 History of Present Illness HPI narrative: Corrina was brought to the ED by her daughter with concerns of nausea and vomiting. She has had some nausea, dysphagia and possibly some weight loss for a couple months. However, over the last few days she has had worsening nausea and 3 episodes of non-bilious vomiting. No diarrhea, fevers or chills. Related Data Home Medications Medication Instructions Recorded Confirmed Vitamin D3 25 mcg PO DAILY 06/24/19 04/29/22 amitriptyline 50 mg tablet 100 mg PO HS 06/24/19 09/19/22 famotidine 20 mg tablet 20 mg PO BID 06/24/19 09/19/22 levothyroxine 100 mcg tablet 88 mcg PO DAILY 06/24/19 09/19/22 senna 100 mg PO DAILY 02/20/20 04/29/22 ergocalciferol (vitamin D2) 1,250 1,250 mcg PO WEEKLY 09/29/20 09/19/22 mcg (50,000 unit) capsule (Vitamin D2) alendronate 70 mg-cholecalciferol 1 tablet PO DAILY 02/21/22 09/19/22 (vitamin D3) 2,800 unit tablet escitalopram oxalate 5 mg tablet 5 mg PO DAILY 02/21/22 09/19/22 paroxetine HCl 10 mg tablet 10 mg PO DAILY 02/21/22 09/19/22 Allergies Allergy/AdvReac Type Severity Reaction Status Date / Time meperidine Allergy Unknown HAD Verified 09/19/22 14:00 DEMEROL IN ER ON 09/10/03 WITH NO REACTION Penicillins Allergy Unknown Hives / Verified 09/19/22 14:00 Red Face Review of Systems Review of Systems: All systems reviewed & are unremarkable except as noted in HPI and below PMFSH Past Medical History Medical History (Updated 09/19/22 @ 16:05 by Lionel Dawkins DO) Anemia Anxiety Bronchitis Hip fracture, right HLD (hyperlipidemia) HTN (hypertension) Hypothyroid Kidney stones Multiple sclerosis MVP (mitral valve prolapse) Surgical History Surgical History H/O bilateral cataract extraction H/O section H/O dilation and curettage H/O: hysterectomy History of arthroplasty of right hip Social History Social History Smoking status: Never smoker Alcohol intake: never Gender identity (if verbalized by the patient): Female Exam Const: General: healthy appearing, no acute distress and alert Nutritional Appearance: well nourished Orientation/consciousness: patient oriented x3 HENMT: Head: normal to inspection Ears: external ears normal Eyes: Conjunctivae: conjunctivae normal Pupils: Equal, round and reactive pupils present Chest: Chest palpation & inspection: normal inspection of the chest Resp: Effort & Inspection: normal respiratory effort Auscultation: clear to auscultation bilaterally Cardio: Rate: regular rate Rhythm: regular rhythm GI: Inspection: non-distended GI Palp: Yes Soft to palpation, No Tenderness to palpation present (GI), No Guarding due to palpation present (GI) and No Rigid due to palpation Auscultation: normal bowel sounds Back/Spine/Pelvis: Back: no CVA tenderness Skin: General skin exam: normal color Neuro: General: patient oriented x3 and moves all extremities Cranial nerves: Yes Nystagmus not present Extrem: General: normal to inspection Psych: Mental Status: mental status grossly normal Course Course Emergency Course: Ordered fluids and labs. Labs largely unremarkable. She was able to tolerate PO without difficulty Vital Signs Vital signs: Vital Signs Temperature 98.6 F 09/19/22 13:48 Pulse Rate 88 09/19/22 13:48 Respiratory Rate 16 09/19/22 13:48 Blood Pressure 149/98 H 09/19/22 13:48 Pulse Oximetry 96 09/19/22 13:48 Oxygen Delivery Room Air 09/19/22 13:48 Temperature 98.6 F 09/19/22 13:50 Pulse Rate 75 09/19/22 15:25 Respiratory Rate 16 09/19/22 15:25 Blood Pressure 138/88 09/19/22 15:25 Pulse Oximetry 98 09/19/22 15:25 Oxygen Delivery Room A
[2022-09-19 14:28] LABS: Basophils Absolute Auto 0.03 K/mm3 (0.00-0.10); Basophils Percent Auto 0.4 % (0.0-1.0); Eosinophils Absolute Auto 0.15 K/mm3 (0.02-0.50); Eosinophils Percent Auto 1.9 % (1.0-6.0); Hematocrit 45.5 % (35.0-42.0); Hemoglobin 14.6 g/dL (11.7-13.8); Immature Granulocyte Absolute 0.03 K/mm3 (0.00-0.00); Immature Granulocyte Percent A 0.4 % (0.0-0.0); Lymphocytes Absolute Auto 0.73 K/mm3 (1.10-4.50); Lymphocytes Percent Auto 9.3 % (18.0-42.0); Mean Corpuscular HGB Conc 32.1 g/dL (32.0-36.0); Mean Corpuscular Hemoglobin 30.3 pg (27.0-31.0); Mean Corpuscular Volume 94.4 fL (78.0-102.0); Mean Platelet Volume 11.3 fl (9.2-11.8); Monocytes Percent Auto 6.4 % (2.0-11.0); Neutrophils Absolute Auto 6.4 K/mm3 (1.7-7.2); Neutrophils Percent Auto 81.6 % (50.0-70.0); Platelet Count Result 221 K/mm3 (150-420); Red Blood Count 4.82 M/mm3 (4.20-5.40); Red Cell Distribution Width 12.4 % (11.6-14.4); White Blood Count 7.8 K/mm3 (4.8-10.8)
[2022-09-19] MEDS: SODIUM CHLORIDE 0.9% IV 1,000 ML 999 ML IV CONT (14:37)
[2022-09-19] MEDS: ONDANSETRON INJ 4 MG/2 ML VIAL IV PUSH (14:37)
[2022-09-19 14:42] LABS: Alanine Aminotransferase 21 U/L (14-59); Albumin Level 3.9 g/dL (3.4-5.0); Alkaline Phosphatase 95 U/L (46-116); Anion Gap 7 mmol/L (8-16); Aspartate Amino Transferase 19 U/L (15-37); Bilirubin,Total 0.5 mg/dL (0.00-1.00); Blood Urea Nitrogen 16 mg/dL (7-18); Calcium 9.3 mg/dL (8.5-10.1); Carbon Dioxide 32 mmol/L (21-32); Chloride 106 mmol/L (98-108); Estimated CRCL calculation 32 ml/min; Estimated Glomerular Filt Rate 36; Glucose 125 mg/dL (70-99); Lipase 14 U/L (16-77); Osmolality Calculated 302 mOsm/kg (285-295); Potassium 4.3 mmol/L (3.5-5.1); Sodium 145 mmol/L (136-145); Total Protein 7.5 g/dL (6.4-8.2)
[2022-09-19 15:25] VITALS: BP 138/88; PULSE 75; RESP 16; O2SAT 98
== END 2022-09-19 16:06 | disposition home or self-care (01) ==
PROVIDERS: Emergency Provider Family Medicine
DX: E86.0 Dehydration (principal); R11.10 Vomiting, unspecified; E78.5 Hyperlipidemia, unspecified; I10 Essential (primary) hypertension; E03.9 Hypothyroidism, unspecified
CPT/HCPCS: 36415; 80053; 83690; 85025; 96361; 96374; 99284; J2405; J7030

== ENCOUNTER 2023-01-26 12:44 | Emergency (ER) | payer MEDICARE, SELFPAY ==
--- NOTE | ~2023-01-26 | XR_ITS ---
EXAMINATION: XR abdomen obstructive series DATE: 01/26/2023 13:36 INDICATION: Left-sided back pain TECHNIQUE: Upright and supine views of the abdomen were obtained. COMPARISON: 01/28/2008 FINDINGS: A large volume of colonic stool is present. Bilateral hip arthroplasties are noted. There a re no dilated loops of bowel. The visualized lung bases are clear. There is at least mild lumbar spon dylosis. IMPRESSION: 1. Constipation. Reviewed, dictated and finalized at location L. IMPRESSION: 1. Constipation.
--- NOTE | 2023-01-26 12:50 | ED.FEMALEGU ---
HPI - Female Genitourinary General Chief complaint: Urogenital-Female Stated complaint: Lower Back Pain Time Seen by Provider: 01/26/23 12:46 Source: patient Mode of arrival: ambulatory Limitations: no limitations History of Present Illness HPI Narrative: Corrina is a 72-year-old female patient presenting to the clinic today with complaints low back pain/possible urinary tract infection. She reports symptoms have been going on for approximately 2 weeks. She reports left-sided low back pain. Is concerned that she may have a urinary tract infection. Denies any urinary symptoms currently. States the pain is about a 7/10 and pretty constant. Pain is worse with movement. Pain is dull aching in nature. Related Data Home Medications Medication Instructions Recorded Confirmed Vitamin D3 25 mcg PO DAILY 06/24/19 01/26/23 amitriptyline 50 mg tablet 100 mg PO HS 06/24/19 01/26/23 famotidine 20 mg tablet 20 mg PO BID 06/24/19 01/26/23 levothyroxine 100 mcg tablet 88 mcg PO DAILY 06/24/19 01/26/23 senna 100 mg PO DAILY 02/20/20 01/26/23 ergocalciferol (vitamin D2) 1,250 1,250 mcg PO WEEKLY 09/29/20 01/26/23 mcg (50,000 unit) capsule (Vitamin D2) alendronate 70 mg-cholecalciferol 1 tablet PO DAILY 02/21/22 01/26/23 (vitamin D3) 2,800 unit tablet escitalopram oxalate 5 mg tablet 5 mg PO DAILY 02/21/22 01/26/23 paroxetine HCl 10 mg tablet 10 mg PO DAILY 02/21/22 01/26/23 donepezil 5 mg tablet 5 mg PO DAILY 01/26/23 01/26/23 quetiapine 50 mg tablet 50 mg PO DAILY 01/26/23 01/26/23 Allergies Allergy/AdvReac Type Severity Reaction Status Date / Time meperidine Allergy Unknown HAD Verified 01/26/23 13:00 DEMEROL IN ER ON 09/10/03 WITH NO REACTION Penicillins Allergy Unknown Hives / Verified 01/26/23 13:00 Red Face Review of Systems Review of Systems: Pertinent positives per HPI. Patient denies any fever, chills, rash, headache, visual changes, dizziness, cough, runny nose, sore throat, shortness of breath, chest pain, palpitations, nausea, vomiting, diarrhea, constipation, abdominal pain, or any urinary issues. [facility] Past Medical History Medical History (Updated 01/26/23 @ 14:02 by John Paul Holm APRN) Anemia Anxiety Bronchitis Hip fracture, right HLD (hyperlipidemia) HTN (hypertension) Hypothyroid Kidney stones Multiple sclerosis MVP (mitral valve prolapse) Surgical History Surgical History H/O bilateral cataract extraction H/O section H/O dilation and curettage H/O: hysterectomy History of arthroplasty of right hip Social History Social History Smoking status: Never smoker Alcohol intake: never Gender identity (if verbalized by the patient): Female Comments At the time of my signature, I reviewed and agree with the nursing past medical, surgical, social, and family history. There is no relevant family history pertinent to the patient complaint. Exam Narrative: General: Well-developed, well nourished, in no apparent distress. Head: Normocephalic, atraumatic. Cardio: Regular rate and rhythm, s1 and s2 normal, no murmur appreciated. Resp: Clear to auscultation bilaterally, no rhonchi, rales, wheezing or rubs. Abdomen: Soft, pliable, bowel sounds present in all quadrants, non-tender to palpation, no organomegly, mild left CVAT tenderness. Musculoskeletal: No deformity, mild tender to palpation over the left flank/low back, grossly normal range of motion, muscle strength strong and equal, peripheral pulse strong, no edema, no cyanosis, normal gait and station Course Course Emergency Course: Portions of this record may have been created with voice recognition software. Level of Care: Express Care Visit Vital Signs Vital signs: Vital signs reviewed MDM - Female Genitourinary MDM Narrative Medical decision tracie
[2023-01-26 12:55] VITALS: BP 124/86; PULSE 73; RESP 18; TEMP 36.6; O2SAT 100
== END 2023-01-26 14:05 | disposition home or self-care (01) ==
PROVIDERS: Emergency Provider Nurse Practitioner Family
DX: K59.00 Constipation, unspecified (principal); M54.50 Low back pain, unspecified; E78.5 Hyperlipidemia, unspecified; I10 Essential (primary) hypertension; E03.9 Hypothyroidism, unspecified; G35 Multiple sclerosis; F41.9 Anxiety disorder, unspecified; I34.1 Nonrheumatic mitral (valve) prolapse; Z98.42 Cataract extraction status, left eye; Z98.41 Cataract extraction status, right eye; Z96.641 Presence of right artificial hip joint
CPT/HCPCS: 74019; 81003; 99213; G0463

== ENCOUNTER 2024-02-01 11:21 | Outpatient (CLI) | payer MEDICARE, SELFPAY ==
--- NOTE | ~2024-02-01 | MM_ITS ---
EXAMINATION: MM screening seamus BI w scar HISTORY: Screening TECHNIQUE: Craniocaudal and mediolateral oblique 3-D tomosynthesis images were obtained and synthetic 2-D images were generated. CAD analysis was submitted and interpreted. COMPARISON: Comparison to multiple prior studies sequentially, with oldest reviewed study dated 11/2017. BREAST PARENCHYMAL COMPOSITION: Not dense: There are scattered areas of fibroglandular density. FINDINGS: There is no evidence of suspicious mass, calcification, or architectural distortion to sugg est malignancy in either breast. There has been no suspicious interval change. IMPRESSION: 1. No mammographic evidence of malignancy. 2. Recommend routine screening mammography in one year. BI-RADS Category 1: Negative Reviewed, dictated and finalized at location B.
== END 2024-02-01 11:22 ==
PROVIDERS: PCP Family Medicine; Visit Provider Family Medicine
DX: Z12.31 Encounter for screening mammogram for malignant neoplasm of breast (principal)
CPT/HCPCS: 77063; 77067

== ENCOUNTER 2024-08-08 21:52 | Emergency (ER) | payer MEDICARE, SELFPAY ==
--- NOTE | ~2024-08-08 | XR_ITS ---
Portable chest x-ray Comparison: 02/21/2022 Clinical History: Fever Findings: Lungs are clear, without focal consolidation or pleural effusion. Cardiomediastinal silho uette is stable. Bones and soft tissues are unremarkable. Impression: Clear lungs. Reviewed, dictated and finalized at location . [employer] SERVICE CLERK Impression: Clear lungs.
[2024-08-08 22:15] VITALS: BP 136/86; PULSE 102; RESP 20; TEMP 37.5; O2SAT 97
[2024-08-09 00:40] VITALS: BP 139/71; PULSE 98; RESP 18; TEMP 36.6; O2SAT 98
[2024-08-09 01:37] LABS: Add Urine Microscopic? YES; Appearance Urine Cloudy (Clear); Bacteria Urine 1+ /hpf; Bilirubin Urine Negative (Negative); Blood Urine Negative (Negative); Color Urine Yellow (Yellow); Glucose Urine UA Negative (Negative); Ketones Urine Negative (Negative); Leukocyte Esterase Ur 2+ LEU/UL (Negative); Nitrate Urine Negative (Negative); Protein Urine Trace mg/dL (Negative); RBC Urine 0-2 /hpf (0-2); Specific Grav Ur 1.013 (1.001-1.035); Squamous Epithelial Cell Urine Few /hpf (Few); WBC Urine >100 /hpf (0-3)
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
[2024-08-09 02:09] LABS: Influenza A QL RT-PCR Negative (Negative); Influenza B QL RT-PCR Negative (Negative); RSV RNA, RT-PCR Negative (Negative); SARS-CoV-2 RNA PCR Negative (Negative)
[2024-08-09] MEDS: SULFAMETHOXAZOLE/TRIMETHOPRIM 800/160 MG DS TABLET 1 TAB PO (02:29)
[2024-08-09] MEDS: IBUPROFEN 400 MG TABLET PO (02:29)
== END 2024-08-09 02:40 | disposition home or self-care (01) ==
PROVIDERS: Emergency Provider Emergency Medicine; PCP Family Medicine
DX: N39.0 Urinary tract infection, site not specified (principal); E03.9 Hypothyroidism, unspecified; I10 Essential (primary) hypertension; E78.5 Hyperlipidemia, unspecified; G35 Multiple sclerosis; Z20.822 Contact with and (suspected) exposure to COVID-19
CPT/HCPCS: 71045; 81001; 87086; 87186; 87637; 99283; A9270

== ENCOUNTER 2025-04-06 12:53 | Emergency (ER) | payer MEDICARE, SELFPAY ==
--- OUTSIDE RECORDS SUMMARY | 2010-05-19 04:00 | XMS_ITS | Continuity of Care Document ---
Author Organization [facility] Address [address] [place] [address] utive [facility] [address] [place] [address] Phone Care Team Providers Care Review Rn Name Role Phone Fuentes OD, Antonino Unavailable Unavailable Procedures Procedure Date Eye Exam & Treatment Refraction Advance Directives Directive Yes / No Effective Date File Name No Information Encounters Encounter Description Practice Location Reason(s) For Visit Diagnoses Date Provider Providers Copied on Encounter [facility], [address] [place] [address] [address], [place], [place], [id number], tel:[phone] [facility] [place] No Information [phone] Fuentes OD Antonino. [address] [facility] [place] , [address], [place], [address], [place]. tel:[phone] Family History Family Member Type Diagnosis Age At Onset No Information Payers Payer name Insurance type Covered alliance party ID Authoriza tion(s) [employer] Plan CI [id number] Social History Type Description Quantity Date Captured Comments Sex Female Smoking Status No Information Chief Complaint And Reason For Visit No Information Reason For Referral Reason For Referral No Information History Of Present Illness Encounter Date Complaint History Of Prese nt Illness No Information Functional Status Date Functional Assessmen t No Information Instructions Date Instruction Additional Infor mation No Information Assessments Type Assessment Date No Information Patient Care Teams Name Effective Dates (start - stop) Status Members No Information
--- OUTSIDE RECORDS SUMMARY | 2024-09-18 09:45 | XMS_ITS ---
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) Active confirmed Problem Gastro-esophage al reflux disease without esophagitis (338440400) Gastro-esophagea l reflux disease without esophagitis (K21.9) Active confirmed Problem Multiple sclerosis (64616156) Multiple sclerosis (G35) Active confirmed Encounters Encounter Location Date Provider Diagnosis [place] [facility] [address] [facility] [address] [place] [address] 09/18/2024 Jimmy Jacobsen Chronic kidney disea se, stage 3a N18.31 ; Anxiety disorder, unspecified F41.9 ; Edema, unspecified R60.9 ; Essential (primary) hypertension I10 ; Obesity, unspecified E66.9 ; Hypothyroidism, unspecified E03.9 ; Hypervitaminosis D E67.3 ; Renal osteodystrophy N25.0 ; Hyperlipidemia, unspecified E78.5 ; Other specified interstitial pulmonary diseases J84.89 ; Gastro-esophageal reflux disease without esophagitis K21.9 and Multiple sclerosis G35 Assessments Encounter Date Diagnosis (ICD Code) Assessment Notes Treatment Notes Treatment Clinical Notes Section Notes 09/18/2024 Chronic kidney disease, stage 3a (ICD-10 - N18.31) 09/18/2024 Anxiety disorder, unspecified (ICD-10 - F41.9) 09/18/2024 Edema, unspecified (ICD-10 - R60.9) 09/18/2024 Essential (primary) hypertension (ICD-10 - I10) 09/18/2024 Obesity, unspecified (ICD-10 - E66.9) 09/18/2024 Hypothyroidism, unspecified (ICD-10 - E03.9) 09/18/2024 Hypervitaminosis D (ICD-10 - E67.3) 09/18/2024 Renal osteodystrophy (ICD-10 - N25.0) 09/18/2024 Hyperlipidemia, unspecified (ICD-10 - E78.5) 09/18/2024 Other specified interstitial pulmonary diseases (ICD-10 - J84.89) 09/18/2024 Gastro-esophageal reflux disease without esophagitis (ICD-10 - K21.9) 09/18/2024 Multiple sclerosis (ICD-10 - G35) Plan Of Treatment No Information Progress Notes * CHARLOTTE BAZZIDOB:[birth year] (74 yo F)Acc No.[id number]:09/18/2024 Progress Notes Patient: CHARLOTTE CARMONA Provider: Edmundo ALVAREZ MD, F.A.C.P, F.A.S.N. :1950 A ge:73 Y S ex:Female Date:09/18/2024 [facility] Subjective: * Chief Complaints: * * Medical History: Objective: * Vitals: Assessment: * Assessment: 1. C hronic kidney disease, stage 3a - N18.31 (Primary) 2 . A nxiety disorder, unspecified - F41.9 3 . E jerry, unspecified - R60.9 4 . E ssential (primary) hypertension - I10 5 . O besity, unspecified - E66.9 & #160; 6 . H ypothyroidism, unspecified - E03.9 7 . H ypervitaminosis D - E67.3 8 . R enal osteodystrophy - N25.0 9 . H yperlipidemia, unspecified - E78.5 1 0. O ther specified interstitial pulmonary diseases - J84.89 1 1. G tiago-esophageal reflux disease without esophagitis - K21.9 ? 1 2. M ultiple sclerosis - G35 Plan: * Treatment: * Billing Information: * Visit Code: 72117 Office Visit, Est Pt., Level 4. * Procedure Codes: * Electronic signature of Beronica Jacobsen MD on 04/06/2025 at 01:41 PM CDT Sign off status: Pending * Provider: Edmundo ALVAREZ MD, F.A.C.P, F.A.S.N. Date: 0 09/18/2024 Generated for Printing/Faxing/eTransmitting on: 0 04/06/2025 01:41 PM CDT
--- OUTSIDE RECORDS SUMMARY | 2024-10-09 09:30 | XMS_ITS ---
Author Organization [facility] Address [address] [place] [address] Care Team Providers Care Planishing Hammer Operator Name Role Phone DelmarJcJimmy Unavailable [phone] Social History Sex Assigned At : Social History Observation Description Sex Assigned At Female Problems Problem Type SNOMED Code ICD Code Onset Dates Problem Status W/U Status Risk Notes Problem Chronic kidney disease stage 3B (disorder) (658801282) Chronic kidney disease, stage 3b (N18.32) Active confirmed Encounters Encounter Location Date Provider Diagnosis [place] [facility] [address] [facility] [address] [place] [address] 10/09/2024 Jimmy Jacobsen Chronic kidney disea se, stage 3b N18.32 ; Anxiety disorder, unspecified F41.9 ; Edema, [...] Treatment Notes Treatment Clinical Notes Section Notes 10/09/2024 Chronic kidney disease, stage 3b (ICD-10 - N18.32) 10/09/2024 Anxiety disorder, unspecified (ICD-10 - F41.9) 10/09/2024 Edema, unspecified (ICD-10 - R60.9) 10/09/2024 Essential (primary) hypertension (ICD-10 - I10) 10/09/2024 Obesity, unspecified (ICD-10 - E66.9) 10/09/2024 Hypothyroidism, unspecified (ICD-10 - E03.9) 10/09/2024 Hypervitaminosis D (ICD-10 - E67.3) 10/09/2024 Renal osteodystrophy (ICD-10 - N25.0) 10/09/2024 Hyperlipidemia, unspecified (ICD-10 - E78.5) 10/09/2024 Other specified interstitial pulmonary diseases (ICD-10 - J84.89) 10/09/2024 Gastro-esophageal reflux disease without esophagitis (ICD-10 - K21.9) 10/09/2024 Multiple sclerosis (ICD-10 - G35) Plan Of Treatment No Information Progress Notes * CHARLOTTE BAZZIDOB:[birth year] (74 yo F)Acc No.[id number]:10/09/2024 Progress Notes Patient: CHARLOTTE CARMONA Provider: Edmundo ALVAREZ MD, F.A.C.P, F.A.S.N. :1950 A ge:74 Y S ex:Female Date:10/09/2024 Address:[address] [place] [address] Subjective: * Chief Complaints: * * Medical History: Objective: * Vitals: Assessment: * Assessment: 1. C hronic kidney disease, stage 3b - N18.32 (Primary) 2 . A nxiety disorder, unspecified [...] Treatment: * Billing Information: * Visit Code: 29949 Office Visit, Est Pt., Level 4. * Procedure Codes: * Electronic signature of Beronica Jacobsen MD on 04/06/2025 at 01:41 PM CDT Sign off status: Pending * Provider: Edmundo ALVAREZ MD, F.A.C.P, F.A.S.N. Date: 0 10/09/2024 Generated for Printing/Faxing/eTransmitting on: 0 04/06/2025 01:41 PM CDT
--- OUTSIDE RECORDS SUMMARY | 2025-01-03 09:30 | XMS_ITS ---
Author Organization [facility] Address [address] [facility] [address] [place] [address] Care Team Providers Care Site Leasing Agent Name Role Phone DelmarJcJimmy Unavailable [phone] Social History Sex Assigned At : Social History Observation Description Sex Assigned At Female Problems Problem Type SNOMED Code ICD Code Onset Dates Problem Status W/U Status Risk Notes Problem Secondary hyperparathyroidism of renal origin (20967294) Secondary hyperparathyroidism of renal origin (N25.81) Active confirmed Problem Metabolic disorder (45252686) Metabolic disorder, unspecified (E88.9) Active confirmed Problem Osteoarthritis (207557153) Osteoarthritis, unspecified osteoarthritis type, unspecified site (M19.90) Active confirmed Encounters Encounter Location Date Provider Diagnosis [place] [facility] [address] [facility] [address] [place] [address] 01/03/2025 Jimmy Jacobsen Chronic kidney disea se, stage 3b N18.32 ; Anxiety disorder, unspecified F41.9 ; Edema, unspecified R60.9 ; Essential (primary) hypertension I10 ; Obesity, unspecified E66.9 ; Hypothyroidism, unspecified E03.9 ; Hypervitaminosis D E67.3 ; Renal osteodystrophy N25.0 ; Hyperlipidemia, unspecified E78.5 ; Other specified interstitial pulmonary diseases J84.89 ; Gastro-esophageal reflux disease without esophagitis K21.9 ; Multiple sclerosis G35 ; Secondary hyperparathyroidism of renal origin N25.81 ; Metabolic disorder, unspecified E88.9 and Osteoarthritis, unspecified osteoarthritis type, unspecified site M19.90 Assessments Encounter Date Diagnosis (ICD Code) Assessment Notes Treatment Notes Treatment Clinical Notes Section Notes 01/03/2025 Chronic kidney disea se, stage 3b (ICD-10 - N18.32) 01/03/2025 Anxiety disorder, unspecified (ICD-10 - F41.9) 01/03/2025 Edema, unspecified (ICD-10 - R60.9) 01/03/2025 Essential (primary) hypertension (ICD-10 - I10) 01/03/2025 Obesity, unspecified (ICD-10 - E66.9) 01/03/2025 Hypothyroidism, unspecified (ICD-10 - E03.9) 01/03/2025 Hypervitaminosis D (ICD-10 - E67.3) 01/03/2025 Renal osteodystrophy (ICD-10 - N25.0) 01/03/2025 Hyperlipidemia, unspecified (ICD-10 - E78.5) 01/03/2025 Other specified interstitial pulmonary diseases (ICD-10 - J84.89) 01/03/2025 Gastro-esophageal reflux disease without esophagitis (ICD-10 - K21.9) 01/03/2025 Multiple sclerosis (ICD-10 - G35) 01/03/2025 Secondary hyperparathyroidism of renal origin (ICD-10 - N25.81) 01/03/2025 Metabolic disorder, unspecified (ICD-10 - E88.9) 01/03/2025 Osteoarthritis, unspecified osteoarthritis type, unspecified site (ICD-10 - M19.90) Plan Of Treatment No Information Progress Notes * CHARLOTTE BAZZIDOB:[birth year] (74 yo F)Acc No.[id number]:01/03/2025 Progress Notes Patient: CHARLOTTE CARMONA Provider: Edmundo ALVAREZ MD, F.A.C.P, F.A.S.N. :1950 A ge:74 Y S ex:Female Date:01/03/2025 Address:[facility] [address] Subjective: * Chief Complaints: * * Medical [...] 1 2. M ultiple sclerosis - G35 1 3. S econdary hyperparathyroidism of renal origin - N25.81 1 4. M etabolic disorder, unspecified - E88.9 1 5. O steoarthritis, unspecified osteoarthritis type, unspecified site - M19.90 ? Plan: * Treatment: * Billing Information: * Visit Code: 88572 Office Visit, Est Pt., Level 4. * Procedure Codes: * Electronic signature of Beroncia Jacobsen MD on 04/06/2025 at 01:42 PM CDT Sign off status: Pending * Provider: Edmundo ALVAREZ MD, F.A.C.P, F.A.S.N. Date: 0 01/03/2025 Generated for Printing/Faxing/eTransmitting on: 0 04/06/2025 01:42 PM CDT
--- OUTSIDE RECORDS SUMMARY | 2025-02-21 10:45 | XMS_ITS ---
Author Organization [facility] Address [address] [facility] [address] [facility] [address] [place] [address] Care Team Providers Care Clay House Worker Name Role Phone DelmarJcJimmy Unavailable [phone] Social History Sex Assigned At : Social History Observation Description Sex Assigned At Female Encounters Encounter Location Date Provider Diagnosis [place] [facility] [address] [facility] [address] [place] [address] 02/21/2025 Jimmy Jacobsen Chronic kidney disea se, stage [...] Treatment Notes Treatment Clinical Notes Section Notes 02/21/2025 Chronic kidney disea se, stage 3b (ICD-10 - N18.32) 02/21/2025 Anxiety disorder, unspecified (ICD-10 - F41.9) 02/21/2025 Edema, unspecified (ICD-10 - R60.9) 02/21/2025 Essential (primary) hypertension (ICD-10 - I10) 02/21/2025 Obesity, unspecified (ICD-10 - E66.9) 02/21/2025 Hypothyroidism, unspecified (ICD-10 - E03.9) 02/21/2025 Hypervitaminosis D (ICD-10 - E67.3) 02/21/2025 Renal osteodystrophy (ICD-10 - N25.0) 02/21/2025 Hyperlipidemia, unspecified (ICD-10 - E78.5) 02/21/2025 Other specified interstitial pulmonary diseases (ICD-10 - J84.89) 02/21/2025 Gastro-esophageal reflux disease without esophagitis (ICD-10 - K21.9) 02/21/2025 Multiple sclerosis (ICD-10 - G35) 02/21/2025 Secondary hyperparathyroidism of renal origin (ICD-10 - N25.81) 02/21/2025 Metabolic disorder, unspecified (ICD-10 - E88.9) 02/21/2025 Osteoarthritis, unspecified osteoarthritis type, unspecified site (ICD-10 - M19.90) Plan Of Treatment No Information Progress Notes * CHARLOTTE BAZZIDOB:[birth year] (74 yo F)Acc No.[id number]:02/21/2025 Patient: CHARLOTTE CARMONA Provider: Edmundo ALVAREZ MD, F.A.C.P, F.A.S.N. :1950 A ge:74 Y S ex:Female Date:02/21/2025 [facility] Subjective: * Chief Complaints: Objective: Assessment: * Assessment: 1. C hronic kidney [...] unspecified site - M19.90 ? Plan: * Billing Information: * Visit Code: 96165 Office Visit, Est Pt., Level 5. * Procedure Codes: * Electronic signature of Beronica Jacobsen MD on 04/06/2025 at 01:41 PM CDT Sign off status: Pending * Provider: Edmundo ALVAREZ MD, F.A.C.P, F.A.S.N. Date: 0 02/21/2025 Generated for Printing/Faxing/eTransmitting on: 0 04/06/2025 01:41 PM CDT
--- OUTSIDE RECORDS SUMMARY | 2025-02-28 12:30 | XMS_ITS ---
Author Organization [facility] Office Address [address] [place] [address] Care Team Providers Care Oracle Ebs Architect Name Role Phone Delmar Jimmy Unavailable [phone] Social History Sex Assigned At : Social History Observation Description Sex Assigned At Female Encounters Encounter Location Date Provider Diagnosis [place] [facility] [address] [facility] [address] [place] [address] 02/28/2025 Jimmy Jacobsen Plan Of Treatment No Information Progress Notes * CHARLOTTE BAZZIDOB:[birth year] (74 yo F)Acc No.[id number]:02/28/2025 Progress Notes Patient: CHARLOTTE CARMONA Provider: Edmundo ALVAREZ MD, Cindi.West.C.P, F.A.S.N. :1950 A ge:74 Y S ex:Female Date:02/28/2025 Address:[address] [facility] Subjective: * Chief Complaints: * * Medical History: Objective: * Vitals: Assessment: Plan: * Treatment: * Billing Information: * Visit Code: * Procedure Codes: * Electronic signature of Beronica Jacobsen MD on 04/06/2025 at 11:02 AM CDT Sign off status: Pending * Provider: Edmundo ALVAREZ MD, Cindi.West.C.P, F.A.S.N. Date: 02/28/2025 Generated for Printing/Faxing/eTransmitting on: 04/06/2025 11:02 AM CDT
--- NOTE | ~2025-04-06 | XR_ITS ---
EXAMINATION: XR chest 1V, 04/06/2025 14:20 CDT HISTORY: Weakness COMPARISON: No comparisons available. Technique: Single view. Findings: The lungs are clear, no effusion. No pneumothorax. Heart is normal size. Mediastinal and hilar contours are within normal limits. Bony thorax no acute abnormality. Impression: No acute cardiopulmonary abnormality. Reviewed, dictated and finalized at location A. Impression: No acute cardiopulmonary abnormality.
--- NOTE | ~2025-04-06 | CT_ITS ---
EXAMINATION: CT brain wo mei, 04/06/2025 14:00 CDT HISTORY: Confusion COMPARISON: No comparisons available. Technique: Axial images obtained of the brain without contrast. One or more of the following dose reduction techniques were used: automated exposure control, adjustment of the mA and/or kV according to patient size, use of iterative reconstruction technique. 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 No acute infarct or hemorrhage. No midline shift or mass effect. No extra-axial fluid collections. Mastoid air cells unremarkable. Sinuses and orbits unremarkable. No acute fracture. No significant facial or scalp soft tissue swelling evident. No radiopaque foreign body is seen. Impression: 1.No acute intracranial abnormality. Reviewed, dictated and finalized at location A. Impression: 1.No acute intracranial abnormality.
--- OUTSIDE RECORDS SUMMARY | 2025-04-06 11:15 | XMS_ITS | Encounter Summary ---
Author Organization [facility] Healthcare Address [address] [place] [address] Care Team Providers Care Senior Web Designer Name Role Phone Saira Carlin INSOLVENCY CONSULTANT Primary Care Provider + Saira Carlin INSOLVENCY CONSULTANT Unavailable [phone] Reason for Visit * Reason Comments Urinary Problem C/O bladder pressure and confusion, dizziness. Symptoms started a week ago. Encounter Details Date Type Department Care Team (Late st Contact Info) Description 04/06/2025 11:15 AM CDT Office Visit [facility] at [address] [id number] Magaly Mortensen NP [address] [place] [address] Sensation of pressure in bladder area (Primary Dx); Confusion; Fall, initial encounter; Head injury, acute, initial encounter Social History Tobacco Use Types Packs/Day Years Used Date Smoking Tobacco: Never Smokeless Tobacco: Never Alcohol Use Standard Drinks/Week Comments Never 0 (1 standard drink = 0.6 oz pur e alcohol) AUDIT-C Answer Date Recorded Q1: How often do you have a drink containing alcohol? Never 04/06/2025 Q2: How many drinks containi ng alcohol do you have on a typical day when you are drinking? Patient does not drink Q3: How often do you have si x or more drinks on one occasion? Never 04/06/2025 Personal Safety Answer Date Recorded Have you ever been in or are you currently in a harmful physical or emotional relationship or is someone making you feel afraid or unsafe? 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 Sexual Orientation Straight 08/11/2020 1: 43 PM WOOD CASKET MAKER documented as of this encounter Last Filed Vital Signs Vital Sign Reading Time Taken Comments Blood Pressure 124/78 04/06/2025 11:12 AM CDT Pulse 78 04/06/2025 11:12 AM CDT Temperature 36.4 C (97.6 F) 04/06/2025 11:12 AM CDT Respiratory Rate 18 04/06/2025 11:12 AM CDT Oxygen Saturation 98% 04/06/2025 11:12 AM CDT Inhaled Oxygen Concentration - - Weight 83.9 kg (185 lb) 04/06/2025 11:12 AM CDT Height 172.7 cm (5' 8) 04/06/2025 11:12 AM CDT Body Mass Index 28.13 04/06/2025 11:12 AM CDT documented in this encounter Functional Status * AUDIT-C Score Answer Date of Assessment Author 0 04/06/2025 11:07 AM CDT Allen Norman MA * Question Answer Date of Assessment Author Q1: How often do you have a drink containing alcohol? Never 04/06/2025 11:07 AM TERET Jerilyn Norman MA Q2: How many drinks containing alcohol do you have on a typical day when you are drinking? Patient does not drink 04/06/2025 11:07 AM TERET Jerilyn Norman MA Q3: How often do you have six or more drinks on one occasion? Never 04/06/2025 11:07 AM TERET Jerilyn Norman MA documented as of this encounter Plan of Treatment Scheduled Orders Name Type Priority Associated Diagnoses Orde r Schedule Urine culture Urine, clean voided Microbiology Routine Confusion Expected: 04/06/2025, Expires: 04/06/2026 documented as of this encounter Procedures Procedure Name Priority Date/Time Associated Diagnosis Comments POCT URINALYSIS DIPSTICK Routine 04/06/2025 11:17 AM CDT Sensation of pressure in bladder area Confusion documented in this encounter Results * (ABNORMAL) POCT urinalysis dipstick (04/06/2025 11:17 AM CDT) Color, Urine, POC Yellow Clarity, ur, POC Clear Clear Glucose, ur, POC Negative Negative Bilirubin, ur, POC Small(A) Negative Ketones, ur, POC Negative Negative Specific [place], POC 1.025 1.003 - 1.030 Blood, ur, POC Negative Negative pH, ur, POC 6.0 5.0 - 8.0 Protein, ur, POC Negative Negative Urobilinogen, urine, POC 1.0 0.2 - 1.0 mg/dL Nitrite, ur, POC Negative Negative Leukocytes, ur, POC Trace(A) Negative Lot Number [id number] Urine 04/06/2025 11:1 7 AM CDT Magaly Mortensen NP POINT OF CARE TEST ORDERABLES Final Result documented in this encounter Visit Diagnoses Diagnosis Sensation of pressure in bladder area- Primary Confusion Unspecified psychosis Fall, initial encounter Head injury, acute, initial encounter documented in this encounter Care Teams Senior Web Designer Relationship Specialty Start Date End Date Saira Carlin NP PCP - General 12/06/20 Saira Carlin NP Nurse Practitioner 12/06/20 documented as of this encounter
[2025-04-06 12:55] VITALS: BP 118/64; PULSE 86; RESP 20; TEMP 36.9; O2SAT 100
--- NOTE | 2025-04-06 13:21 | ED.FALL ---
HPI - Fall General Chief Complaint: Fall Stated Complaint: confusion, fell 1wk ago hit head Time Seen by Provider: 04/06/25 13:21 Source: patient Mode of arrival: ambulatory Limitations: no limitations History of Present Illness HPI Narrative: 74 years old white female came from home with her daughter complaining of intermittent dizziness, intermittent confusion. Patient reports having ground level fall at home 1 week ago, struck her head on a on the floor, no loss of consciousness. Patient report taking tramadol for 1 month for chronic back pain, which probably causing patient feeling dizzy. Currently patient is awake, alert oriented x4, denying any symptoms at this time. Related Data Home Medications ?Medication ?Instructions ?Recorded ?Confirmed ?Last Taken ?Type Vitamin D3 25 mcg PO DAILY 06/24/19 01/26/23 Unknown History amitriptyline 50 mg tablet 100 mg PO HS 06/24/19 01/26/23 Unknown History famotidine 20 mg tablet 20 mg PO BID 06/24/19 01/26/23 Unknown History levothyroxine 100 mcg tablet 88 mcg PO DAILY 06/24/19 01/26/23 Unknown History senna 100 mg PO DAILY 02/20/20 01/26/23 Unknown History ergocalciferol (vitamin D2) 1,250 1,250 mcg PO WEEKLY 09/29/20 01/26/23 Unknown History mcg (50,000 unit) capsule (Vitamin D2) alendronate 70 mg-cholecalciferol 1 tablet PO DAILY 02/21/22 01/26/23 Unknown History (vitamin D3) 2,800 unit tablet escitalopram oxalate 5 mg tablet 5 mg PO DAILY 02/21/22 01/26/23 Unknown History paroxetine HCl 10 mg tablet 10 mg PO DAILY 02/21/22 01/26/23 Unknown History donepezil 5 mg tablet 5 mg PO DAILY 01/26/23 01/26/23 Unknown History quetiapine 50 mg tablet 50 mg PO DAILY 01/26/23 01/26/23 Unknown History Allergies Allergy/AdvReac Type Severity Reaction Status Date / Time meperidine Allergy Unknown HAD Verified 04/06/25 12:54 DEMEROL IN ER ON 09/10/03 WITH NO REACTION Penicillins Allergy Unknown Hives / Verified 04/06/25 12:54 Red Face Review of Systems Review of Systems: All systems reviewed & are unremarkable except as noted in HPI and below PMFSH Past Medical History Medical History (Updated 04/06/25 @ 14:54 by Royer Brown MD) Anemia Anxiety Hypothyroid Hip fracture, right Kidney stones Bronchitis HTN (hypertension) HLD (hyperlipidemia) MVP (mitral valve prolapse) Multiple sclerosis Surgical History Surgical History History of arthroplasty of right hip H/O section H/O dilation and curettage H/O: hysterectomy H/O bilateral cataract extraction Social History Social History Smoking status: Never smoker Alcohol intake: never Gender identity (if verbalized by the patient): Female Exam Narrative: General appearance: Well-developed, well-nourished Skin: Normal color Head: Normocephalic, nontraumatic Eyes: Clear conjunctiva ENT: Oropharynx normal, ears normal, nose normal Neck: Supple, nontender Chest and respiratory: Airway patent, no respiratory distress, no accessory muscle use Heart: Regular rate/rhythm Abdomen: Soft, nontender, no organomegaly, quiet bowel sounds Vascular: Normal peripheral pulses, normal capillary refill. Musculoskeletal: Normal range of motion, nontender back Neurologic: Alert and oriented ?3, SE[employer] T[employer] CLE[employer]ER is normal as tested, no gross motor deficit Course Vital Signs Vital signs: Vital Signs Temperature 36.9 C 04/06/25 12:55 Pulse Rate 86 04/06/25 12:55 Respiratory Rate 04/06/25 12:55 Blood Pressure 118/64 04/06/25 12:55 Pulse Oximetry 100 04/06/25 12:55 Oxygen Delivery Room Air 04/06/25 12:55 Temperature 36.9 C 04/06/25 12:55 Pulse Rate 86 04/06/25 12:55 Respiratory Rate 04/06/25 12:55 Blood Pressure 118/64 04/06/25 12:55 Pulse Oximetry 100 04/06/25 12:55 Oxygen Delivery Room Air 04/06/25 12:55 MDM - Fall MDM Narrative Medical decision making narrative: Patient came from home complaining of intermittent dizziness,. Vital signs are stable Physical examination is unremarkable Differential diagnosis include electrolyte imbalance, dehydration urinary tract infection, intracranial bleed/pathology, tramadol side effects Blood workup today includes CBC, CMP, troponin showed insignificant abnormalities Urinalysis showed trace of leukocyte Estrace not a strong indication for urinary tract infection patient probably need to drink extra fluid, wait for urine culture results EKG on arrival showed no significant abnormalities to explain patient condition Chest x-ray showed no acute abnormalities CT head without contrast showed no acute abnormalities Diagnosis closed head injury, weakness The pt was discharged to home.the pt,s condition upon discharge was fair,education was provided to the pt in reference to the final impression,discharge study results,treatment,prognosis and need for follow up . Differential Diagnosis Differential diagnosis: Likely other (As above) Medical Records Attestation: I reviewed the patient's medical records. Lab Data Attestation: I reviewed the patient's lab results. 04/06/25 13:42 04/06/25 13:42 Labs: Lab Results 04/06/25 04/06/25 Range/Units 13:42 14:10 WBC 4.4 L (4.5-10.0) K/mm3 RBC 4.28 (4.2-5.4) M/mm3 Hgb 12.8 (12.0-15.0) g/dL Hct 40.4 (37.0-47.0) % MCV 94.4 (80-100) fl MCH 29.9 (26-34) pg MCHC 31.7 L (32-36) g/dl RDW 13.0 (11.5-14.5) % Plt Count 190 (150-375) k/mm3 MPV 10.8 H (7.4-10.4) fl Immature Gran % (Auto) 0.7 H (0-0.5) % Neut % (Auto) 67.7 (45.5-73.1) % Lymph % (Auto) 22.9 (18.3-44.2) % [place] % (Auto) 4.1 (2.6-8.5) % Eos % (Auto) 3.9 (0-4.4) % Baso % (Auto) 0.7 (0.2-1.2) % Lymph # (Auto) 1.00 (0.9-3.2) K/mm3 [place] # (Auto) 0.2 (0.1-0.6) K/mm3 Eos # (Auto) 0.2 (0-0.3) K/mm3 Baso # (Auto) 0.0 (0.0-0.1) K/mm3 Abs Immat Gran (auto) 0.03 (0.00-0.031) K/mm3 Absolute Neuts (auto) 3.0 (1.3-6.7) K/mm3 Absolute Nucleated RBC 0.000 (0.0-0.012) K/mm3 Nucleated RBC % 0.0 (0.0-0.2) % PT 13.6 (11.1-14.7) Seconds INR 1.0 APTT 27.8 (22.3-36.8) Seconds Sodium 134 L (137-145) mmol/L Potassium 3.7 (3.4-5.0) mmol/L Chloride 103 (98-107) mmol/L Carbon Dioxide 27 (22-30) mmol/L Anion Gap 4 (4-12) mmol/L BUN 18 H (7-17) mg/dL Creatinine 1.17 H (0.7-1.0) mg/dL Estim Creat Clear Calc Not Reportable Estimated GFR 45 L (59 - ) Glucose 183 H (65-110) mg/dL Calcium 8.8 (8.4-10.2) mg/dL Total Bilirubin 0.5 (0.2-1.3) mg/dL AST 28 (14-36) U/L ALT 20 (6-35) U/L Alkaline Phosphatase 61 (38-126) U/L Total Creatine Kinase 43 (30-135) U/L Total Protein 6.6 (6.3-8.2) g/dL Albumin 3.8 (3.5-5.1) g/dL Urine Color Yellow (Yellow) Urine Appearance Clear (Clear) Urine pH 6.0 (5.0-9.0) Ur Specific [place] 1.008 (1.001-1.035) Urine Protein Negative (Negative) mg/dL Urine Glucose (UA) Negative (Negative) mg/dL Urine Ketones Negative (Negative) mg/dL Ur Blood (Man) Negative (Negative) Urine Nitrate Negative (Negative) Urine Bilirubin Negative (Negative) Urine Urobilinogen 1.0 (<2.0) mg/dL Leukocyte Esterase Rfl Trace H (Negative) [place]/UL Urine RBC 0-2 (0-2) /hpf Urine WBC 0-5 (0-3) /hpf Ur Squamous Epith Cells Occasional (Few) /hpf Urine Bacteria None seen /hpf Urine Casts 0-2 Imaging Data Radiologist's impression: Impressions Head CT 04/06/25 14:18 Impression: 1.No acute intracranial abnormality. Chest X-Ray 04/06/25 14:41 Impression: No acute cardiopulmonary abnormality. ECG Data EKG #1: Attestation: I personally reviewed and interpreted this ECG as follows: ECG completion date: 04/06/25 Interpretation: Normal sinus rhythm at 83 beats per minute, possible left atrial enlargement, right bundle-branch block, no previous EKG available for comparison Critical Care Time Critical Care Time Critical Care Time: No Discharge Plan Discharge Clinical Impression: CHI (closed head injury), Weakness Patient Disposition: Home Condition: Stable Instructions: Head Injury (DC), Weakness (ED) Additional Instructions: Return if symptoms are worsening , call your family physician for appointment, take Tylenol as as needed for aches and pain, continue home medications., encourage fluid intake Patient Language: Scottish Prescriptions: No Action donepezil 5 mg tablet 5 mg PO DAILY quetiapine 50 mg tablet 50 mg PO DAILY amitriptyline 50 mg Tablet 100 mg PO HS levothyroxine 100 mcg Tablet 88 mcg PO DAILY famotidine 20 mg Tablet 20 mg PO BID Vitamin D3 25 mcg PO DAILY paroxetine HCl 10 mg tablet 10 mg PO DAILY escitalopram oxalate 5 mg tablet 5 mg PO DAILY alendronate-vitamin D3 70 mg- 2,800 unit Tablet 1 tablet PO DAILY senna 100 mg PO DAILY ergocalciferol (vitamin D2) [Vitamin D2] 1,250 mcg (50,000 unit) Capsule 1,250 mcg PO WEEKLY sulfamethoxazole-trimethoprim [Bactrim DS] 800-160 mg tablet 1 tablet PO Q12H 5 Days Qty: 10 0RF Follow-up/Referrals: Amrik,MD Derrick [Primary Care Provider, Unknown]
--- NOTE | 2025-04-06 13:23 | ECG_ITS ---
Test Date: 2025-04-06 13:37:09 Measurements Intervals [place] Rate: 83 P: 46 KS: 153 QRS: -25 QRSD: 129 T: 41 QT: 412 QTc: 484 Interpretive Statements SINUS RHYTHM POSSIBLE LEFT ATRIAL ENLARGEMENT [-0.1mV P-WAVE IN V1/V2] BORDERLINE LEFT AXIS DEVIATION [QRS AXIS < -20] RIGHT BUNDLE BRANCH BLOCK [120+ ms QRS DURATION, UPRIGHT V1, 40+ ms S IN I/aVL/V4/V5/V6] No previous ECG available for comparison Electronically Signed On 04-07-2025 14:14:06 CDT by Jama Garcia M.D.
--- OUTSIDE RECORDS SUMMARY | 2025-04-06 13:41 | XMS_ITS | Clinical Summary ---
Author Organization [facility] Address [address] [place] [address] Care Team Providers Care Supervisor Riveting Name Role Phone Saira Carlin COOPERATIVE EDUCATION COORDINATOR Primary Care Provider + Saira Carlin COOPERATIVE EDUCATION COORDINATOR Unavailable [phone] Allergies Active Allergy Reactions Criticality Noted Date Comments Meperidine Anxiety Low Meperidine Other (See comments) Low 12/06/2020 unknown Penicillins Rash Medium Penicillins Other (See comments) Low 12/06/2020 rash Medications acetaminophen (TYLENOL) 500 mg tablet Take 1 tablet (500 mg total) by mouth every 4 (four) hours as needed 1 Active levothyroxine (SYNTHROID) 88 mcg tablet Take 1 tablet (88 mcg total) by mouth outreach educator before breakfast Active alendronate (FOSAMAX) 70 mg tablet Take 1 tablet (70 mg total) by mouth every 7 days Active famotidine (PEPCID) 20 mg tablet Take 1 tablet (20 mg total) by mouth 2 (two) times a day Active escitalopram (LEXAPRO) 10 mg tablet 3 Active aspirin 81 mg enteric coated tablet Take 1 tablet (81 mg total) by mouth daily Active cholecalciferol (VITAMIN D-3) 5,000 unit tablet Take by mouth daily Active amitriptyline (ELAVIL) 75 mg tablet TAKE 1 TABLET EVERY NIGHT 90 tablet 3 4 Active rivastigmine (EXELON) 4.6 mg/[address] 4.6 mg on the skin daily 30 patch 3 4 Active QUEtiapine (SEROquel) 50 mg tablet Take 1 tablet (50 mg total) by mouth 2 (two) times a day 60 tablet 3 4 Active cyanocobalamin (Vitamin B-12) 1,000 mcg/mL injection Inject 1 mL every month by subcutaneous route for 1 day. 4 Active ergocalciferol (VITAMIN D) 50,000 unit capsule 4 Active losartan (COZAAR) 25 mg tablet 4 Active meloxicam (MOBIC) 7.5 mg tablet 4 Active tiZANidine (ZANAFLEX) 2 mg tablet 4 Active traMADoL (ULTRAM) 50 mg tablet TAKE 1 TO 2 TABLETS BY MOUTH EVERY 6 HOURS NEEDED FOR MODERATE TO SEVERE PAIN 4 Active Active Problems Problem Noted Date Diagnosed Date Spasticity 04/19/2024 Pruritic rash 01/20/2021 Age-related osteoporosis wit h current pathological fracture with routine healing 01/07/2021 Overview (01/07/2021): She has two subsequent hip fractures. We cannot measure the bone density in the hips but given the mechanism of the 2 fragility fractures the Dx is established. This may prove some challenge to follow but we can and will follow the DXA in the spine to gauge the therapeutic response Assessment & Plan (01/07/2021 1:58 PM CDT): Discussed the Dx, the options benefits and risks. This is severe osteoporosis and there is an immediate need for Rx. We will start ZOL and plan on yearly follow up. Discussed the calcium and D intake as well SDH (subdural hematoma) 12/06/2020 Dementia with behavioral disturbance 09/08/2020 Assessment & Plan (12/27/2023 1:32 PM CDT): Increase quetiapine/Seroquel to 50 mg BID to help with hallucinations and mood. Initiated rivastigmine/Exelon patch 4.6 mg/24 hours. Will hold off on memantine/Namenda as she has frequent falls. Will reach out to social insurance analyst team to discuss with CS about potential resources for them that are available. Follow-up in 3 months or sooner if need be. Abnormal MRI 08/11/2020 Balance disorder 08/11/2020 Fracture of femur 03/03/2020 Urinary retention 02/25/2020 Essential hypertension 02/22/2020 Hypothyroidism 02/22/2020 Vitamin D deficiency 02/22/2020 Acute pain due to trauma 02/22/2020 Closed fracture of neck of left femur 02/20/2020 Overview (02/22/2020): Added automatically from request for surgery [id number] Primary osteoarthritis of right hip 05/23/2018 Overview (05/23/2018): Added automatically from request for surgery [id number] Mixed anxiety and depressive disorder 05/14/2018 Multiple sclerosis 04/04/2018 Frequent falls 04/04/2018 Abnormality of gait and mobility 04/04/2018 Medication monitoring encounter 04/04/2018 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 04/04/2018 Dysesthesia of multiple sites 04/04/2018 Resolved Problems Problem Noted Date Diagnosed Date Resolved Date Disturbance in sleep behavior 04/04/2018 02/22/2020 Encounters Date Type Department Care Team Description 04/06/2025 11:15 AM CDT Office Visit [facility] at [address] [address] Magaly Mortensen, TITA Sensation of pressure in bladder area (Primary Dx); Confusion; Fall, initial encounter; Head injury, acute, initial encounter from Last 3 Months Immunizations Immunization Administration Dates Next Due DTaP 5 Pertussis 10/10/2011 Influenza, Quadrivalent, Spl it, Intramuscular 06/19/2018 Influenza, Trivalent, High D ose, Split, Preservative Free, Intramuscular 06/20/2018 Pfizer SARS-CoV-2 Monovalent Vaccination (12+ Yrs) PURPLE 10/07/2020,10/04/2020,09/16/2020,09/13 Pneumococcal Conjugate PCV 13 08/30/2018 Sars-CoV-2, Unspecified 10/07/2020,09/16/2020 TD Preservative Free 11/21/2023 Surgical History Surgery Date Site/Laterality Comments OK TOTAL ABDOMINAL HYSTERECT W/WO RMVL TUBE OVARY Hysterectomy - (Added by KATELIN Conv) SECTION HYSTERECTOMY HIP SURGERY 07/17/2017 - 07/16/2018 Right ORIF, hardware removal, total arthroplasty ORAL SURGERY HIP SURGERY 07/17/2018 - 07/16/2019 Medical History Medical History Date Comments Thyroid disease Arthritis GERD (gastroesophageal reflux disease) Hypertension Optic neuritis Nephrolithiasis Depression Cataract Mitral valve prolapse Hip fracture (HCC) Multiple sclerosis (HCC) Family History Medical History Relation Name Comments Cancer Brother Heart disease Brother Hyperlipidemia Brother Hypertension Brother Other Daughter Dementia Father Heart disease Father Hip fracture Father Hyperlipidemia Father Kidney disease Father Arthritis Mother Cancer Mother Hyperlipidemia Mother Hypertension Mother Hypertension Son Anesthesia problems Neg Hx Relation Name Status Comments Brother Alive Daughter Alive Father Mother Son Alive Social History Tobacco Use Types Packs/Day Years Used Date Smoking Tobacco: Never Smokeless Tobacco: Never Tobacco Cessation:Counseling Given: Not Answered Alcohol Use Standard Drinks/Week Comments Never 0 [...] on file Legal Sex Female 8:28 PM BEAD MACHINE OPERATOR Gender Identity Female 08/11/2020 1:43 PM BEAD MACHINE OPERATOR Sexual Orientation Straight 08/11/2020 1: 43 PM BEAD MACHINE OPERATOR Obstetrics History Last Filed Vital Signs Vital Sign Reading [...] Mass Index 28.13 04/06/2025 11:12 AM CDT Plan of Treatment Health Maintenance Due Date Last Done Comments Colon Cancer Screening-Colonoscopy 1950 Depression Screening 1950 Hepatitis C Screening 1950 Hepatitis B Screening 10/03/1967 Zoster Vaccine (1 of 2) 10/03/1999 Well Visit 65+ 2014 Pneumococcal vaccine 65+ (2 of 2 - PCV20 or PCV21) 08/30/2019 08/30/2018 Fall Risk Assessment 12/11/2021 12/11/2020 Osteoporosis Screening-Bone Density Scan 01/07/2023 01/07/2021 Covid-19 Vaccine (7 2024-2 6 season) 2025 10/07/2020, 10/07/2020, 10/04/2020, Additional history exists Influenza Vaccine (#1) 2025 06/20/2018, 2017 DTaP/Tdap/Td Vaccine (3 - Tdap) 11/20/2033 , 10/10/2011 Breast Cancer Screening-Mammogram Discontinued 024 Medical Devices Implanted Type Area Automobile Body Worker Device Identifier Shelf Expiration Date Model / Serial / Lot [employer] 6191-1-010 Simplex P Radiopaque Full Dose Cement Bone Sterile - [id number] Implanted:Qty: 1 on 02/22/2020 by Will Emanuel MD at [facility] Bone Cement Left: Hip [employer] 07/16/2021 6191-1-010 / / [id number] [employer] 6191-1-010 Simplex P Radiopaque Full Dose Cement Bone Sterile - [id number] Implanted:Qty: 1 on 02/22/2020 by Will Emanuel MD at [facility] Bone Cement Left: Hip [employer] 07/16/2021 6191-1-010 / / [id number] [employer] [id number] Versys Legacy 47mm Unipolar Endoprosthetic Hip 06/29 Head Femoral - Sna - [id number] Implanted:Qty: 1 on 02/22/2020 by Will Emanuel MD at [facility] Other - see comments Left: Hip [employer] [id number] 12/14/2029 [id number] / NA / [id number] Description:Femoral head [employer] [id number] Versys 10mm Cemented Hip Distal Centralizer Stem Pmma Sterile - Sna - [id number] Implanted:Qty: 1 on 02/22/2020 by Will Emanuel MD at [facility] Other - see comments Left: Hip [employer] [id number] 04/15/2029 [id number] / NA / [id number] Description:Distal centraliz ed 10 mm [employer] [id number] Versys Ld/Fx 12mm 125mm Cemented Hip 38mm Offset Stem Femoral - Sna - [id number] Implanted:Qty: 1 on 02/22/2020 by Will Emanuel MD at [facility] Other - see comments Left: Hip [employer] [id number] 08/16/2026 [id number] / NA / [id number] Description:Femoral stem [employer] [id number] Cable-Ready 1.8mm 635cm Cerclage Crimp Trochanter Cable - [id number] Implanted:Qty: 1 on 06/18/2018 by Megan Richter MD at [facility] Right: Hip [employer] [id number] 02/14/2028 [id number] / / [id number] [employer] [id number] G7 56mm Limit 4 Hole Hip F Hemisphere Offset Shell Acetabular - [id number] Implanted:Qty: 1 on 06/18/2018 by Megan Richter MD at [facility] Right: Hip [employer] [id number] 02/15/2028 [id number] / / [id number] [employer] [id number] Trilogy 6.5mm 25mm Self Tap Screw Bone - [id number] Implanted:Qty: 1 on 06/18/2018 by Megan Richter MD at [facility] Right: Hip [employer] [id number] 03/16/2028 [id number] / / [id number] [employer] [id number] Trilogy 6.5mm 25mm Self Tap Screw Bone - [id number] Implanted:Qty: 1 on 06/18/2018 by Megan Richter MD at [facility] Right: Hip [employer] [id number] 02/14/2028 [id number] / / [id number] [employer] [id number] G7 36mm Hip F Neutral Liner Acetabular Arcomxl - [id number] Implanted:Qty: 1 on 06/18/2018 by Megan Richter MD at [facility] Right: Hip [employer] [id number] 03/21/2023 [id number] / / [id number] [employer] [id number] Alaniz Cone Prosthesis 19mm 126.6mm Primary Hip 135d 33.2mm 06/29 - [id number] Implanted:Qty: 1 on 06/18/2018 by Megan Richter MD at [facility] Right: Hip [employer] 09/13/2022 [id number] / / [id number] [employer] [id number] 36mm Hip Acetabular -3.5mm 06/29 Small Head Femoral Biolox Delta - [id number] Implanted:Qty: 1 on 06/18/2018 by Megan Richter MD at [facility] Right: Hip [employer] [id number] 01/14/2028 [id number] / / [id number] [employer]/Richco/Or tho [id number] Prep-Im Plug Hughes Sponge Suction Hip Kit Thr Latex Free - [id number] Implanted:Qty: 1 on 02/22/2020 by Will Emanuel MD at [facility] Left: Hip [employer]/ Ortho 11/28/2029 [id number] / / Procedures Procedure Name Priority Date/Time Associated Diagnosis Comments POCT URINALYSIS DIPSTICK Routine 04/06/2025 11:17 AM CDT Sensation of pressure in bladder area Confusion DEXA AXIAL SKELETON BONE DENSITY 1 OR MORE SITES Schedule Routine, Read Routine (OP Routine) 01/07/2021 12:47 PM CDT Osteoporosis, unspecified osteoporosis type, unspecified pathological fracture presence from Last 3 Months or Most Recently Relevant to Health Maintenance Results * (ABNORMAL) POCT urinalysis dipstick (04/06/2025 11:17 AM CDT) Color, Urine, POC Yellow Clarity, ur, POC Clear Clear Glucose, ur, POC Negative Negative Bilirubin, ur, POC Small(A) Negative Ketones, ur, POC Negative Negative Specific [place], POC 1.025 1.003 - 1.030 Blood, ur, POC Negative Negative pH, ur, POC 6.0 5.0 - 8.0 Protein, ur, POC Negative Negative Urobilinogen, urine, POC 1.0 0.2 - 1.0 mg/dL Nitrite, ur, POC Negative Negative Leukocytes, ur, POC Trace(A) Negative Lot Number [id number] Urine 04/06/2025 11:1 7 AM CDT Magaly Mortensen NP POINT OF CARE TEST ORDERABLES Final Result * Dexa Axial Skeleton Bone Density 1 or 2 Site (01/07/2021 12:47 PM CDT) Anatomical Region Laterality Modality Body N/A Radiographic Shalini ging Narrative 01/07/2021 6:29 PM CDT Patient Name: Corrina Irvin Date of : 1950 Date of scan: 01/07/2021 Bone mineral density was performed on a HoloBoxC Discovery Densitometer. Based on machine cross-calibration and precision studies the least significant changes of this densitometer is 0.024 g/cm2 at the spine, 0.020 g/cm2 at the total proximal femur, and 0.014g/cm2 at the forearm. HISTORY: This is a 70 y.o. postmenopausal female with a history of multiple fractures, thyroid disease and vitamin D deficiency. She reports that she has never smoked. She has never used smokeless tobacco. She is currently on treatment with vitamin D and thyroid hormone; and was previously treated with . She has a current complaint of back pain. INDICATIONS: Menopause status, history of prior hip fracture, vitamin D deficiency and screening for osteoporosis. FINDINGS: BONE MINERAL DENSITY OF THE LUMBAR SPINE Bone Mineral Density (BMD) of the lumbar spine was measured from L1-L4 and the average density was calculated to be 0.870 gm/cm2. This corresponds to a T-score (standard deviations from the mean of young adults) of -1.6. There is no previous study available for comparison. BONE MINERAL DENSITY OF THE FOREARM Bone Mineral density (BMD) of the left proximal 1/3 of the radius measures 0.685 gm/cm2. This corresponds to a T-score (standard deviations from the mean of young adults) of -0.1. There is no previous study available for comparison. A forearm bone density study was performed instead of a proximal femur study because of presence of surgical hardware. SUMMARY: Bone mineral density shows evidence of low bone mass at the lumbar spine and moderately increased fracture risk (Osteopenia). ADDITIONAL COMMENTS: Postmenopausal Women and Men Over 50: Diagnostic criteria: Osteoporosis: BMD at or below -2.5 T-score; Osteopenia (low bone mass): BMD between -1.0 and -2.5 T-score. If the patient has a history of a fragility fracture, a fracture that occurred with trauma equivalent to a fall from a standing position or less, then the diagnosis is osteoporosis regardless of bone density. The history and data sections of the bone mineral density scan were prepared by Rocio Worley (R)(CBDT) who is accredited by the International Society of Clinical Densitometry. The overall patient assessment and scan interpretation were performed by Finn Christian M.D. who is certified by the International Society of Clinical Densitometry. [id number] Dimitry Keyes MD IM DXA PROCEDURES Final Resul t from Last 3 Months or Most Recently Relevant to Health Maintenance Insurance [id number] HU[employer] MEDICARE HMO HU[employer]NA MEDICARE HMO HUMANA MEDICARE HMO Advance Directives For more information, please contact: [phone] * Full Code (Latest Code Status on File) Date Activated Date Inactivated Comments 12/06/2020 12:40 PM 12/11/2020 6:40 PM * Full Code Date Activated Date Inactivated Comments 02/21/2020 9:44 PM 02/26/2020 5:09 PM * Full Code Date Activated Date Inactivated Comments 06/18/2018 1:17 PM 06/20/2018 9:56 PM Care Teams Supervisor Riveting Relationship Specialty Start Date End Date Saira Carlin NP PCP - General 12/06/20 Saira Carlin NP Nurse Practitioner 12/06/20
--- OUTSIDE RECORDS SUMMARY | 2025-04-06 13:41 | XMS_ITS | Encounter Summary ---
Author Organization [facility] Address [address] [place] [address] Phone Care Team Providers Care Scale Attendant Name Role Phone Saira Carlin AUTOMATIC DRILLER AND REAMER Primary Care Provider + Mikie Barragan MD Primary Care Provider + [phone] Mikie Barragan MD Primary Care Provider + [phone] Mikie Barragan MD Primary Care Provider + [phone] Saira Carlin AUTOMATIC DRILLER AND REAMER Primary Care Provider + Saira Carlin AUTOMATIC DRILLER AND REAMER Primary Care Provider + Saira Carlin AUTOMATIC DRILLER AND REAMER Unavailable [phone] Encounter Details Date Type Department Care Team (Late st Contact Info) Description 02/20/2018 Telephone [facility] Medicine Scheduling [address] [place] [address] Mitra Porter Social History Tobacco Use Types Packs/Day Years Used Date Smoking Tobacco: Never Assessed Comments Unknown Sex and Gender Information Value Date Recorded Sex Assigned at Not on file Legal Sex Female 8:28 PM REGIONAL EXTENSION SERVICE SPECIALIST Gender Identity Female 08/11/2020 1:43 PM REGIONAL EXTENSION SERVICE SPECIALIST Sexual Orientation Straight 08/11/2020 1: 43 PM REGIONAL EXTENSION SERVICE SPECIALIST documented as of this encounter Plan of Treatment Not on file documented as of this encounter Visit Diagnoses Not on filedocumented in this encounter Additional Health Concerns Infection Onset Date Last Indicated Resolved Time COVID: Suspected 12/23/2020 12/23/2020 12/24/2020 1:22 AM CDT documented as of this encounter Care Teams Scale Attendant Relationship Specialty Start Date End Date Saira Carlin NP PCP - General Nurse Practitioner 02/20/18 05/07/18 Mikie Barragan MD [address] [place] [address] [place] [address] PCP - General Family Medicine 05/08/18 06/17/18 Mikie Barragan MD [address] [place] [address] [place] [address] PCP - General 06/18/18 06/20/18 Mikie Barragan MD [address] [place] [address] [place] [address] PCP - General Family Medicine 06/21/18 08/10/20 Saira Carlin NP [address] [place] [address] [place] [address] PCP - General Nurse Practitioner 08/11/20 12/05/20 Saira Carlin, TITA [address] [place] [address] [place] [address] PCP - General 12/06/20 Saira Calrin NP [address] [place] [address] [place] [address] Nurse Practitioner 12/06/20 documented as of this encounter
--- OUTSIDE RECORDS SUMMARY | 2025-04-06 13:41 | XMS_ITS | Clinical Summary ---
Author Organization [facility] Address [address] [place] [address] Care Team Providers Care Heel Buffer Name Role Phone Saira Carlin [facility] Primary Care Provider + Stefania Major QUICKBOOKS BOOKKEEPER Unavailable [phone] Allergies No known active allergies Medications levothyroxine 88 MCG tabletIndicatio ns:Hypothyroidi sm Take 88 mcg by mouth every morning. Indications: Underactive Thyroid 08/24/19 Active bisacodyl EC 5 MG Tab EC tabletIndicatio ns:Constipation Take 5 mg by mouth daily as needed (constipation). Indications: Constipation 08/24/19 Active Multiple Vitamins-Minera ls (VITAMIN D3 COMPLETE OR)Indications: Vitamin D Deficiency Take 5,000 Units by mouth see administration instructions. Patient to take 2 per dose. Indications: Vitamin D Deficiency 08/24/19 Active docusate sodium 100 MG capsuleIndicati ons:Constipatio n Take 100 mg by mouth 2 (two) times daily as needed for Constipation. Indications: Constipation 08/24/19 Active amitriptyline 50 MG tabletIndicatio ns:Insomnia,Mul tiple Sclerosis Take 100 mg by mouth nightly at bedtime. Indications: Trouble Sleeping, Multiple Sclerosis 08/24/19 Active citalopram (CELEXA) 20 MG tabletIndicatio ns:Depression Take 20 mg by mouth daily. Indications: Depression 08/24/19 Active famotidine 20 MG tabletIndicatio ns:Acid Indigestion Take 20 mg by mouth 2 (two) times daily. Indications: Acid Indigestion 08/24/19 Active acetaminophen 500 MG tabletIndicatio ns:Pain Take 500 mg by mouth every 4 (four) hours as needed for Pain. Indications: Pain 10/08/19 21 Active Social History Tobacco Use Types Packs/Day Years Used Date Smoking Tobacco: Never Assessed Comments Unknown Sex and Gender Information Value Date Recorded Sex Assigned at Not on file Legal Sex Female 6:09 PM CDT Gender Identity Not on file Sexual Orientation Not on file Last Filed Vital Signs Vital Sign Reading Time Taken Comments Blood Pressure 138/80 10/21/2020 12:10 PM CDT Pulse 72 10/21/2020 12:10 PM CDT Temperature 36.5 C (97.7 F) 10/21/2020 12:10 PM CDT Respiratory Rate 18 10/21/2020 12:10 PM CDT Oxygen Saturation 98% 10/21/2020 12:10 PM CDT Inhaled Oxygen Concentration - - Weight 88.9 kg (196 lb) 10/21/2020 12:10 PM CDT Height 174 cm (5' 8.5) 10/21/2020 12:10 PM CDT Body Mass Index 29.37 10/21/2020 12:10 PM CDT Plan of Treatment Health Maintenance Due Date Last Done Comments Colorectal Cancer Screening Colonoscopy (10 Years) 1950 Hepatitis C 10/03/1967 Zoster Vaccines (1 of 2) 10/03/1999 Annual Medicare Wellness Visit 2014 Dexa Scan (General) 2014 Pneumococcal Vaccine: 50+ Ye ars (2 of 2 - PPSV23) 08/30/2019 08/30/2018 DTaP, Tdap and Td Vaccines ( 2 - Tdap) 10/09/2021 10/10/2011 RSV Immunization or 60+ Years (1 - 1-dose 75+ series) 2024 COVID-19 Vaccine ( - 2023-2 5 season) 2025 Meningococcal B Vaccine Aged Out No l onger eligible based on patient's age to complete this topic Meningococcal Vaccine Aged Out No gisselle ana eligible based on patient's age to complete this topic RSV Immunizations Under 20 Months Aged Out No longer eligible based on patient's age to complete this topic Insurance HU[employer] Advance Directives * Full Code (Latest Code Status on File) Date Activated Date Inactivated Comments 08/24/2020 8:49 PM Care Teams Heel Buffer Relationship Specialty Start Date End Date Saira Carlin, YESI- [address] [place] [id number] PCP - General NURSE PRACTITIONER 08/14/20 Stefania Major, DEYA [id number] [place] [address] Specialist 08/14/20
--- OUTSIDE RECORDS SUMMARY | 2025-04-06 13:42 | XMS_ITS | Clinical Summary ---
Author Organization [facility] Address [address] [place] [address] Phone Care Team Providers Care Assembler Adjuster Name Role Phone Saira Carlin APRN, DIRECTOR OF COMMUNITY SERVICES Primary Care Pro vider Allergies Active Allergy Reactions Criticality Noted Date Comments Meperidine Unknown 07/20/2023 Prednisone Unknown 07/20/2023 Medications acetaminophen (TYLENOL) 500 MG Tablet Take 500 mg by mouth every 4 hours as needed. 10/07/2020 Active alendronate (FOSAMAX) 70 MG Tablet Take 70 mg by mouth once a week. Given on sat. Active amitriptyline (ELAVIL) 75 MG Tablet Take 1 Tablet by mouth nightly. 02/12/2023 Active escitalopram (LEXAPRO) 10 MG Tablet Take 10 mg by mouth daily. 10/13/2022 Active famotidine (PEPCID) 20 MG Tablet Take 20 mg by mouth 2 times daily. Active levothyroxine (SYNTHROID) 88 MCG Tablet Take 88 mcg by mouth daily. Active methocarbamol (ROBAXIN) 500 MG Tablet Take 500 mg by mouth every 8 hours as needed. 08/11/2022 Active QUEtiapine Fumarate (SEROquel) 50 MG Tablet Take 4 Tablets by mouth nightly. 03/07/2023 Active aspirin 81 MG Chewable Tablet Take 1 Tablet by mouth daily. 07/22/2023 Active traMADol (ULTRAM) 50 MG TabletIndicatio ns:Contusion of buttock Take 1-2 Tablets by mouth every 6 hours as needed for Moderate or more severe pain. 12 Tablet 01/28/2024 Active Active Problems Problem Noted Date Diagnosed Date Encephalopathy acute 07/20/2023 Alzheimer's dementia Multiple sclerosis Hyperthyroidism Brain aneurysm GERD (gastroesophageal reflux disease) Mood disorder Social History Tobacco Use Types Packs/Day Years Used Date Smoking Tobacco: Never Smokeless Tobacco: Never Tobacco Cessation:Counseling Given: Not Answered Alcohol Use Standard Drinks/Week Comments Not Currently 0 (1 standard drink = 0.6 oz pur e alcohol) [facility] Utilities Answer Date Recorded In the past 12 months has e Via [employer], gas, oil, or water i[employer] threatened to shut off services in your home? No 07/20/2023 Social Connection and Isolation Panel Answer Date Recorded In a typical week, how many times do you talk on the phone with family, friends, or neighbors? Never 07/20/2023 How often do you get together with friends or re latives? Never 07/20/2023 How often do you attend gnosticism or adventism serv ices? Never 07/20/2023 Do you belong to any clubs o r organizations such as gnosticism groups, unions, fraternal or athletic groups, or school groups? No 07/20/2023 How often do you attend meet ings of the clubs or organizations you belong to? Never 07/20/2023 Are you , , di vorced, , never , or living with a partner? 07/20/2023 AUDIT-C Answer Date Recorded Q1: How often do you have a drink containing alcohol? Never 07/20/2023 Q2: How many drinks containi ng alcohol do you have on a typical day when you are drinking? Patient does not drink Q3: How often do you have si x or more drinks on one occasion? Never 07/20/2023 Overall Financial Resource Strain (CARDIA) Answe r Date Recorded How hard is it for you to pa y for the very basics like food, housing, medical care, and heating? Not hard at all 07/20/2023 [facility] - Occupational Stress Questionnaire Answer Date Recorded Do you feel stress - tense, restless, nervous, or anxious, or unable to sleep at night because your mind is troubled all the time - these days? Not at all 07/20/2023 Exercise Vital Sign Answer Date Recorde d On average, how many days pe r week do you engage in moderate to strenuous exercise (like a brisk walk)? 0 days 07/20/2023 On average, how many minutes do you engage in exercise at this level? 0 min 07/20/2023 Hunger Vital Sign Answer Date Recorded Within the past 12 months, y ou worried that your food would run out before you got the money to buy more. Never true 07/20/19 24 Within the past 12 months, t he food you bought just didn't last and you didn't have money to get more. Never true 07/20/2023 PRAPARE - Transportation Answer Date Re corded In the past 12 months, has l ack of transportation kept you from medical appointments or from getting medications? No 10/2023 In the past 12 months, has l ack of transportation kept you from meetings, work, or from getting things needed for daily living? No 07/20/2023 Housing Stability Vital Sign Answer Low e Recorded In the last 12 months, was t here a time when you were not able to pay the mortgage or rent on time? No 07/20/2023 In the last 12 months, how many places have you lived? 1 07/20/2023 In the last 12 months, was t here a time when you did not have a steady place to sleep or slept in a fci (including now)? No 07/20/2023 Sexually Active Control Partners Comments Not Currently Comments No Sex and Gender Information Value Date Recorded Sex Assigned at Not on file Legal Sex Female 1:50 PM [employer] PROGRAM[employer] Gender Identity Not on file Sexual Orientation Not on file Last Filed Vital Signs Vital Sign Reading Time Taken Comments Blood Pressure 110/62 01/28/2024 1:00 PM CDT Pulse 78 01/28/2024 1:00 PM CDT Temperature 37.4 C (99.3 F) 01/28/2024 7:19 AM CDT Respiratory Rate 16 01/28/2024 7:19 AM CDT Oxygen Saturation 95% 01/28/2024 1:00 PM CDT Inhaled Oxygen Concentration - - Weight 75 kg (165 lb 5.5 oz) 01/28/2024 7:19 AM CDT Height 174 cm (5' 8.5) 01/28/2024 7:19 AM CDT Body Mass Index 24.77 01/28/2024 7:19 AM CDT Plan of Treatment Health Maintenance Due Date Last Done Comments Hepatitis C Virus (HCV) Screening 1950 TdaP Immunization 1950 Cologuard 1994 Colonoscopy 1994 Colorectal Cancer Screening 1994 Immunochemical Fecal Occult Blood 1994 Zoster Immunization (1 of 2) 10/03/1999 Pneumococcal Immunization (50+ years) (2 of 2 - PCV20 or PCV21) 08/30/2019 08/30/2018 DEXA Bone Density 01/07/2023 01/07/2021 Respiratory Syncytial Virus (RSV) Immunization (Adult) (1 - 1-dose 75+ series) 2024 Influenza Immunization (#1) 2025 06/20/2018, 1 08/20/2017 SARS-COV-2 Immunization ( season) 2025 10/07/2020, 10/04/2020, 09/16/2020, Additional history exists DTaP/Tdap/Td Immunization Discontinued 11/21/2023, Hepatitis B Immunization Aged Out No longer eligible based on patient's age to complete this topic Human Papillomavirus (HPV) Immunization Aged Out No longer eligible based on patient's age to complete this topic Meningococcal Immunization (ACWY) Aged Out No longer eligible based on patient's age to complete this topic Rotavirus Immunization Aged Out No lo nger eligible based on patient's age to complete this topic Insurance MEDICARE C [employer] Advance Directives * Full Code (Latest Code Status on File) Date Activated Date Inactivated Comments 08/03/2023 11:52 AM 01/28/2024 7:17 AM * Full Code Date Activated Date Inactivated Comments 07/21/2023 1:30 AM 07/21/2023 9:52 PM CPR-Full Treat ment: FULL ARREST: Attempt Resuscitation/CPR wit intubation and mechanical ventilation. PRE-ARREST: Use entire range of life support measures to stabilize the patient. Care Teams Assembler Adjuster Relationship Specialty Start Date End Date Saira Carlin, NEGATIVE ASSEMBLER, DIRECTOR OF COMMUNITY SERVICES [address] [place] [address] PCP - General Certified Nurse Practitioner 07/21/23
--- OUTSIDE RECORDS SUMMARY | 2025-04-06 13:42 | XMS_ITS | Patient Health Record ---
Author Organization [facility] Address [address] [facility] [place] [address] Care Team Providers Care Slabbing Machine Operator Name Role Phone Jimmy Jacobsen Unavailable [phone] Reason For Referral No Information Medications Medication SIG (Take, Route, Frequency, Duration) Notes Start Date End Date Status Myrbetriq 25 MG 1 tablet Orally Once a day; Duration: 90 day(s) 10/09/2024 10/20/2025 Active Losartan Potassium 50 MG 1 tablet Orally Once a day; Duration: 90 days 01/13/2025 Active Myrbetriq 50 MG 1 tablet Orally Once a day; Duration: 90 days 02/13/2025 02/13/2026 Active Losartan Potassium 25 MG 1 tablet Orally Once a day; Duration: 90 day(s) 12/08/2023 Active Social History Sex Assigned At : Social History Observation Description Sex Assigned At Female Problems Problem Type SNOMED Code ICD Code Onset Dates Problem Status W/U Status Risk Notes Problem Hypothyroidism (04332869) Hypothyroidism, unspecified (E03.9) Active confirmed Problem Obesity (039664859) Obesity, uns pecified (E66.9) Active confirmed Problem 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) Active confirmed Problem Metabolic disorder (48793142) Metabolic disorder, unspecified (E88.9) Active confirmed Problem Anxiety disorder (459569596) Anxiety disorder, unspecified (F41.9) Active confirmed Problem Multiple sclerosis (40633916) Multiple sclerosis (G35) Active confirmed Problem Essential hypertension (00907840) Essential (primary) hypertension (I10) Active confirmed Problem 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) Active confirmed Problem Gastro-esophageal reflux disease without esophagitis (193134643) Gastro-esophageal reflux disease without esophagitis (K21.9) Active confirmed Problem Renal osteodystrophy (10452898) Renal osteodystrophy (N25.0) Active confirmed Problem Secondary hyperparathyroidism of renal origin (89006280) Secondary hyperparathyroidism of renal origin (N25.81) Active confirmed Problem Edema (38894980) Edema, unspecif ied (R60.9) Active confirmed Problem Hyperlipidemia (17892335) Hyperlipidemia, unspecified (E78.5) Active confirmed Problem Osteoarthritis (469248003) Osteoarthritis, unspecified osteoarthritis type, unspecified site (M19.90) Active confirmed Problem Chronic kidney disease stage 3B (disorder) (914277505) Chronic kidney disease, stage 3b (N18.32) Active confirmed Encounters Encounter Location Date Provider Diagnosis [facility] [address] [place] [id number] 09/18/2024 Jimmy Jacobsen Chronic kidney disea se, stage 3a N18.31 ; Anxiety disorder, unspecified F41.9 ; Edema, unspecified R60.9 ; Essential (primary) hypertension I10 ; Obesity, unspecified E66.9 ; Hypothyroidism, unspecified E03.9 ; Hypervitaminosis D E67.3 ; Renal osteodystrophy N25.0 ; Hyperlipidemia, unspecified E78.5 ; Other specified interstitial pulmonary diseases J84.89 ; Gastro-esophageal reflux disease without esophagitis K21.9 and Multiple sclerosis G35 [facility] [address] [place] [id number] 10/09/2024 Jimmy Jacobsen Chronic kidney disea se, stage 3b N18.32 ; Anxiety disorder, unspecified F41.9 ; Edema, unspecified R60.9 ; Essential (primary) hypertension I10 ; Obesity, unspecified E66.9 ; Hypothyroidism, unspecified E03.9 ; Hypervitaminosis D E67.3 ; Renal osteodystrophy N25.0 ; Hyperlipidemia, unspecified E78.5 ; Other specified interstitial pulmonary diseases J84.89 ; Gastro-esophageal reflux disease without esophagitis K21.9 and Multiple sclerosis G35 [facility] [address] [address] 01/03/2025 Jimmy Jacobsen Chronic kidney disea se, [...] Osteoarthritis, unspecified osteoarthritis type, unspecified site M19.90 [facility] [address] [place] [id number] 02/21/2025 Jimmy Jacobsen Chronic kidney disea se, [...] Osteoarthritis, unspecified osteoarthritis type, unspecified site M19.90 [facility] [address] [place] [id number] 10/09/2024 Jimmy Jacobsen [facility] [address] [place] [address] 01/13/2025 Jimmy Jacobsen [facility] [address] [place] [id number] 01/23/2025 Jimmy Jacobsen [facility] [address] [address] 02/13/2025 Jimmy Jacobsen [facility] [address] [place] [address] 02/18/2025 Jimmy Jacobsen Assessments Encounter Date Diagnosis (ICD Code) Assessment Notes Treatment Notes Treatment Clinical Notes Section Notes 09/18/2024 Chronic kidney disea se, stage 3a (ICD-10 - N18.31) 10/09/2024 Chronic kidney disea se, stage 3b (ICD-10 - N18.32) 01/03/2025 Anxiety disorder, unspecified (ICD-10 - F41.9) 01/03/2025 Chronic kidney disea se, stage 3b (ICD-10 - N18.32) 02/21/2025 Chronic kidney disea se, stage 3b (ICD-10 - N18.32) 01/03/2025 Edema, unspecified (ICD-10 - R60.9) 02/21/2025 Anxiety disorder, unspecified (ICD-10 - F41.9) 10/09/2024 Anxiety disorder, unspecified (ICD-10 - F41.9) 09/18/2024 Anxiety disorder, unspecified (ICD-10 - F41.9) 09/18/2024 Edema, unspecified (ICD-10 - R60.9) 10/09/2024 Edema, unspecified (ICD-10 - R60.9) 01/03/2025 Essential (primary) hypertension (ICD-10 - I10) 02/21/2025 Edema, unspecified (ICD-10 - R60.9) 02/21/2025 Essential (primary) hypertension (ICD-10 - I10) 01/03/2025 Obesity, unspecified (ICD-10 - E66.9) 10/09/2024 Essential (primary) hypertension (ICD-10 - I10) 09/18/2024 Essential (primary) hypertension (ICD-10 - I10) 10/09/2024 Obesity, unspecified (ICD-10 - E66.9) 09/18/2024 Obesity, unspecified (ICD-10 - E66.9) 01/03/2025 Hypothyroidism, unspecified (ICD-10 - E03.9) 02/21/2025 Obesity, unspecified (ICD-10 - E66.9) 02/21/2025 Hypothyroidism, unspecified (ICD-10 - E03.9) 01/03/2025 Hypervitaminosis D (ICD-10 - E67.3) 09/18/2024 Hypothyroidism, unspecified (ICD-10 - E03.9) 10/09/2024 Hypothyroidism, unspecified (ICD-10 - E03.9) 10/09/2024 Hypervitaminosis D (ICD-10 - E67.3) 09/18/2024 Hypervitaminosis D (ICD-10 - E67.3) 02/21/2025 Hypervitaminosis D (ICD-10 - E67.3) 01/03/2025 Renal osteodystrophy (ICD-10 - N25.0) 01/03/2025 Hyperlipidemia, unspecified (ICD-10 - E78.5) 02/21/2025 Renal osteodystrophy (ICD-10 - N25.0) 09/18/2024 Renal osteodystrophy (ICD-10 - N25.0) 10/09/2024 Renal osteodystrophy (ICD-10 - N25.0) 09/18/2024 Hyperlipidemia, unspecified (ICD-10 - E78.5) 10/09/2024 Hyperlipidemia, unspecified (ICD-10 - E78.5) 01/03/2025 Other specified interstitial pulmonary diseases (ICD-10 - J84.89) 02/21/2025 Hyperlipidemia, unspecified (ICD-10 - E78.5) 02/21/2025 Other specified interstitial pulmonary diseases (ICD-10 - J84.89) 01/03/2025 Gastro-esophageal reflux disease without esophagitis (ICD-10 - K21.9) 10/09/2024 Other specified interstitial pulmonary diseases (ICD-10 - J84.89) 09/18/2024 Other specified interstitial pulmonary diseases (ICD-10 - J84.89) 09/18/2024 Gastro-esophageal reflux disease without esophagitis (ICD-10 - K21.9) 10/09/2024 Gastro-esophageal reflux disease without esophagitis (ICD-10 - K21.9) 01/03/2025 Multiple sclerosis (ICD-10 - G35) 02/21/2025 Gastro-esophageal reflux disease without esophagitis (ICD-10 - K21.9) 02/21/2025 Multiple sclerosis (ICD-10 - G35) 01/03/2025 Secondary hyperparathyroidism of renal origin (ICD-10 - N25.81) 10/09/2024 Multiple sclerosis (ICD-10 - G35) 09/18/2024 Multiple sclerosis (ICD-10 - G35) 01/03/2025 Metabolic disorder, unspecified (ICD-10 - E88.9) 02/21/2025 Secondary hyperparathyroidism of renal origin (ICD-10 - N25.81) 01/03/2025 Osteoarthritis, unspecified osteoarthritis type, unspecified site (ICD-10 - M19.90) 02/21/2025 Metabolic disorder, unspecified (ICD-10 - E88.9) 02/21/2025 Osteoarthritis, unspecified osteoarthritis type, unspecified site (ICD-10 - M19.90) Plan Of Treatment No Information
[2025-04-06 13:48] LABS: Hematocrit 40.4 % (37.0-47.0); Hemoglobin 12.8 g/dL (12.0-15.0); Immature Granulocyte Percent A 0.7 % (0-0.5); Lymphocytes Absolute Auto 1.00 K/mm3 (0.9-3.2); Mean Corpuscular HGB Conc 31.7 g/dl (32-36); Mean Corpuscular Hemoglobin 29.9 pg (26-34); Mean Corpuscular Volume 94.4 fl (80-100); Nucleated Red Blood Cells Absolute Auto 0.000 K/mm3 (0.0-0.012); Nucleated Red Blood Cells Perc 0.0 % (0.0-0.2); Platelet Count Result 190 k/mm3 (150-375); Red Blood Count 4.28 M/mm3 (4.2-5.4); White Blood Count 4.4 K/mm3 (4.5-10.0)
[2025-04-06 13:58] LABS: INR 1.0; Prothrombin Time 13.6 Seconds (11.1-14.7)
[2025-04-06 13:59] LABS: Partial Thromboplastin Time 27.8 Seconds (22.3-36.8)
[2025-04-06 14:00] LABS: Alanine Aminotransferase 20 U/L (6-35); Albumin Level 3.8 g/dL (3.5-5.1); Alkaline Phosphatase 61 U/L (38-126); Anion Gap 4 mmol/L (4-12); Aspartate Amino Transferase 28 U/L (14-36); Bilirubin,Total 0.5 mg/dL (0.2-1.3); Blood Urea Nitrogen 18 mg/dL (7-17); Calcium 8.8 mg/dL (8.4-10.2); Carbon Dioxide 27 mmol/L (22-30); Chloride 103 mmol/L (98-107); Creatine Kinase 43 U/L (30-135); Estimated Glomerular Filt Rate 45; Glucose 183 mg/dL (65-110); Potassium 3.7 mmol/L (3.4-5.0); Sodium 134 mmol/L (137-145); Total Protein 6.6 g/dL (6.3-8.2)
[2025-04-06 14:19] LABS: Add Urine Microscopic? YES; Appearance Urine Clear (Clear); Glucose Urine UA Negative (Negative); Leukocyte Esterase Ur Trace LEU/UL (Negative); Nitrate Urine Negative (Negative); Non Pathogenic Casts 0-2; Specific Grav Ur 1.008 (1.001-1.035)
== END 2025-04-06 15:06 | disposition home or self-care (01) ==
PROVIDERS: Emergency Provider Emergency Medicine; PCP Family Medicine
DX: S09.90XA Unspecified injury of head, initial encounter (principal); R53.1 Weakness; G35 Multiple sclerosis; I34.1 Nonrheumatic mitral (valve) prolapse; I10 Essential (primary) hypertension; E03.9 Hypothyroidism, unspecified; E78.5 Hyperlipidemia, unspecified; G89.29 Other chronic pain; M54.9 Dorsalgia, unspecified; F41.9 Anxiety disorder, unspecified; Z86.2 Personal history of diseases of the blood and blood-forming organs and certain disorders involving the immune mechanism; Z87.442 Personal history of urinary calculi; Z79.899 Other long term (current) drug therapy; I45.10 Unspecified right bundle-branch block; Z96.641 Presence of right artificial hip joint; Z90.710 Acquired absence of both cervix and uterus; Z98.42 Cataract extraction status, left eye; Z98.41 Cataract extraction status, right eye; W18.30XA Fall on same level, unspecified, initial encounter; R94.31 Abnormal electrocardiogram [ECG] [EKG]
CPT/HCPCS: 36415; 70450; 71045; 80053; 81001; 82550; 85025; 85610; 85730; 93005; 99284

== ENCOUNTER 2025-06-25 11:09 | Outpatient (CLI) | payer MEDICARE, SELFPAY ==
--- NOTE | ~2025-06-25 | MM_ITS ---
EXAMINATION: MM screening seamus BI w scar HISTORY: Screening. TECHNIQUE: Craniocaudal and mediolateral oblique 3-D tomosynthesis images were obtained and synthetic 2-D images were generated. CAD analysis was submitted and interpreted. COMPARISON: 2023, 2020, and 2019. BREAST PARENCHYMAL COMPOSITION: Not Dense: There are scattered areas of fibroglandular FINDINGS: No suspicious masses are seen. There are no suspicious calcifications. No unexplained architectural distortion is seen. There are no skin or nipple abnormalities identified. There is no adenopathy seen on the images submitted. IMPRESSION: No mammographic evidence to suggest malignancy is seen. The patient may return to screening mammography as per ACR guidelines. BI-RADS 1 - Negative. Reviewed, dictated and finalized at location C. OR TRIAL ATTORNEY
== END 2025-06-25 11:10 | disposition home or self-care (01) ==
LOC: ANHFOHIMG 11:11
PROVIDERS: PCP Family Medicine; Visit Provider Family Medicine
DX: Z12.31 Encounter for screening mammogram for malignant neoplasm of breast (principal)
CPT/HCPCS: 77063; 77067